=== PATIENT | male | born 1955 | race Caucasian/White ===

== ENCOUNTER → 2016-12-18 | Outpatient (CLI) | payer OTHER ==
--- NOTE | 2016-12-19 07:21 | PAP/PSG TECHNICIAN REPORT ---
[facility] Supervisor Edging Polysomnogram Report Study name: None Report date: 12/19/2016 Study date: 12/18/2016 Referring Physician: Agus Lee M.D. Name: PREM LAURA Maria D Interpreting Physician: Angie Lee M.D. Date of : 1955 Supervisor Edging: Gia Cronin, PSGT. Sex: Male Age: 61 StudyType: PSG Weight: 332 lbs Height: 61 years, Height 5' 9" Neck Circum: 21 inches BMI: 49.02 Medications: Maxide 37.5-25 , Metformin 850 mg, Lipitor 20 mg, Flonase 50 mcg, Williamson-3 1000 mg, Aspirin EC 81 mg, Muti-vit, Epipen 0.3 mg. Patient History 61 yr. old male in room 7, presents tonight for a split night study. states that he is going through the process of gastric bypass surgery. Pt. states that he has awakened gasping and that he snores. Ess =13, Neck = 21 inches. Parameters Monitored NPSG: E1-M2, E2-M1, Fp1-M2, Fp2-M1, F3-M2, F4-M2, F4-M1, C3-M2, C4-M2, C4-M1, O1-M2, O2-M2, O2-M1, T3-M2, T4-M1, P3-M2, P4-M1, CHIN1, CHIN2, HR, EKG, Legs, PFLOW, SNOR, FLOW, CFLOW, Tidal Volume, THOR, ABDO, SpO2, PLTH, CPRESS, ETCO2 Wave, ETCO2, pH Sleep Architecture Sleep Stages Time at Lights Off 9:04:14 PM STAGES Time (min.) TST (%) Time at Lights On 4:16:44 AM Wake 168.5 -- Total Recording Time (TRT) 434.00 min. N1 32.5 12 Total Sleep Period (TSP) 408.5 min. N2 173.5 66 Total Sleep Time (TST) 264.0min. N3 0.0 0 Awake Time 170.0 min. REM 58.0 22 Wake after Sleep Onset 163.0 min. Sleep Efficiency (SE) 61 % Sleep Onset Latency (AUBREY) 5.5 min. Number of Stage 1 Shifts None Awakenings 12 Stage Changes 50 Number of REM periods 2 REM 58.0 22 REM Latency 93.5 min. NREM 206.0 78 Body Position Analysis Supine Right Left Side Prone Vertical Total Sleep Time (min.) 432.5 0.0 0.0 0.00 0.0 0.0 Total Sleep Time (%) 100% 0% 0% 0 0% N/A% Total Sleep Time REM (min.) 58.0 0.0 0.0 None 0.0 0.0 Total Sleep Time NREM (min.) 206.0 0.0 0.0 None 0.0 0.0 Intermittent Wake (min.) 168.5 0.0 0.0 None 0.0 0.0 Total Sleep Period (%) 100% None None None None None Arousals Myoclonus (PLM) * Events Count Index Events Count Index Spontaneous 68 15 Events Awake (PLMW) 5 1.8 Respiratory 4 0.9 Events Asleep w/ Arousal (PLMA) 0 0.0 PLM 0 0 Events Asleep w/o Arousal (PLMS) 16 3.6 Snoring 11 3 Total Asleep 16 3.6 Total 83 19 Total 21 3 Respiratory Analysis * CA OA MA CH H RERA Total Count 0 2 0 0 63 0 66 Index 0.0 0.5 0.0 0 14.3 0 15.0 Mean Duration 0.0 20.7 0.0 35.27 21.2 0.0 21.4 Longest Duration 0.0 23.7 0.0 35.27 0.0 0.0 45.9 Respiratory Event Summary Total Supine ~Supine Right Left Prone REM NREM Apneas Count 2 2 N/A N/A N/A N/A 1 1 Index 0.5 0 N/A N/A N/A N/A 1 0 Hypopneas (4% Desat) Count 63 63 N/A N/A N/A N/A 37 26 Index 14.3 14.3 N/A N/A N/A N/A 38.3 7.6 Apneas & All Hypopneas Count 66 66 N/A N/A N/A N/A 39 27 Index 15.0 15 N/A N/A N/A N/A 40.3 7.9 Respiratory Events (Etl Programmer+All Hyp+RERA) Count 66 66 N/A N/A N/A N/A 39 27 Index 15.0 15 N/A N/A N/A N/A 40.3 7.9 Respiratory Related Arousal Count 4 66 N/A N/A N/A N/A 1 3 Index 0.9 1 N/A N/A N/A N/A 1 1 Snoring Analysis Supine Right Left Prone REM NREM Total Snore duration 9.1 min Snores count 503 N/A N/A N/A 38 465 503 Snore mean duration 1.1 Sec Snores index 114 N/A N/A N/A 39.3 135.4 114.3 TST with snoring (%) 3.4% SpO2 Analysis Total REM NREM Awake <50% 0.0 min. 0.0 min. 0.0 min. 0.0 min. 51 - 60% 0.0 min. 0.0 min. 0.0 min. 0.0 min. 61 - 70% 0.2 min. 0.2 min. 0.0 min. 0.0 min. 71 - 80% 7.5 min. 7.5 min. 0.0 min. 0.0 min. 81 - 90% 231.0 min. 42.8 min. 134.8 min. 53.5 min. 91 - 100% 172.3 min. 7.5 min. 71.2 min. 93.6 min. Average 90 85 90 91 Minimum SpO2 69 69 83 85 Desaturation Event Index 9.0 39.3 7.9 0.0 # Desat. Events below 89% 61 36 25 0 Time(%) with Saturation below 89% 16.6 10.2 5.1 1.3 Time(min.) with Saturation below 89% 68.2 42.0 21.0 5.2 Heart Rate Analysis End Tidal CO2 Analysis Min (bpm) Max (bpm) Average (bpm) TSP (mins) % of TSP Awake 58 119 84 Above 55 mmHg 6.1 2.3 NREM 57 104 78 50-55 mmHg 58.2 22.0 REM 49 94 69 45-50 mmHg 196.5 74.4 Overall 49 104 76 40-45 mmHg 2.4 0.9 35-40 mmHg 0.6 0.2 30-35 mmHg 0.0 0.0 Average ETCO2 0.0 Supplemental O2 Values Minimum O2 level: None Value Start Time End Time Supervisor Edging Comments PSG Study Mr. Christensen slept in the supine position. No cardiac arrhythmia or PLM's noted. No bruxism noted. Snoring was noted and scored as a 3 on a scale of 1 through 5. (0=no snoring, 5=snoring loud enough to be heard through a closed door or down the dean way) Mr. Christensen awoke to use the restroom 2 times during the night. Mr. Christensen stated, I did better than I sleep in my own bed. The final report will be interpreted and signed by a sleep physician. The completed physician report will then be placed in the patient medical record. Pt. slept in the hospital bed with it reclined up 40 %, he did have a lot of hip, knees and foot pain throughout the night. Pt. did not meet split night criteria in a timely matter. Moderate snoring was displayed while sleeping, patient did wake often from hip discomfort and to use the restroom. woke at 4 am and stated that he was unable to sleep any longer, test ended at that time. Therapy (cm H2O) 0 TIB (min.) 432.5 TST (min.) 264.0 Sleep Onset (min.) 5.5 REM Onset From Sleep (min.) 93.5 Sleep Efficiency % 61 Wakefulness (%) 39 Wakefulness (min.) 170.0 NREM 1 (%) 12 NREM 1 (min.) 32.5 NREM 2 (%) 66 NREM 2 (min.) 173.5 NREM 3 (%) 0 NREM 3 (min.) 0.0 REM (%) 22 REM (min.) 58.0 # Arousals 83 Arousal Index 19 # Snore 503 Snore Index 114.3 AHI 15.0 AHI Supine 15 AHI Non-Supine N/A NREM AHI 7.9 REM AHI 40.3 RDI 15.0 # Obstructive Apnea 2 # Central Apnea 0 # Mixed Apnea 0 # Hypopneas 63 RERAs 0 Total Respiratory Events 66 Time Below SpO2 89% (min.) 63.0 Mean NREM SpO2 (%) 90 Mean REM SpO2 (%) 85 Mean Sleep SpO2 (%) 89 Min NREM SpO2 (%) 83 Min REM SpO2 (%) 69 Position Supine (min.) 432.5 Position Non-supine (min.) 0.0 LM Index Sleep 3.6 LM Index NREM 3.5 LM Index REM 4.1 Mean Heart Rate (bpm) 76 Min Heart Rate (bpm) 49
--- NOTE | 2016-12-28 09:00 | POLYSOMNOGRAPH REPORT ---
REFERRING PERSON: Dr. Noemi Lee. PATCH PRESS OPERATOR: Leah Cronin. Mr. Christensen is a 61-year-old male, who presents to the sleep lab for a split night sleep study. He is anticipating gastric bypass surgery. He wakes up from sleep gasping for air and he snores. His [place] sleepiness scale score on the evening of this study is 13. BMI is 49.02. Following the technical and digital specifications of the [employer] (AASM) a standard diagnostic polysomnogram was performed monitoring EEG, EOG, EMG (chin and leg deviations), oxygen saturation, body position, digital video, respiratory effort and airflow. The sleep Stage and event scoring was based on the AASM Manual for the Scoring of Sleep and Associated Events 2007 edition. Apneas are defined as a drop in the peak thermal sensor excursion by >90% of baseline for at least 10 seconds. Hypopneas were scored using the 4% oxygen desaturation rule (4A-[employer]ic[employer]) and a decrease in the nasal pressure excursions by >30% of baseline for at least 10 seconds. Respiratory effort-related arousal (RERA's) is defined as a sequence of breaths lasting at least 10 seconds characterized by increasing respiratory effort or flattening of the nasal pressure waveform leading to an arousal from sleep when the sequence of breaths does not meet criteria for an apnea or hypopnea. Apnea Hypopnea index (AHI) is defined as the number of apneas and hypopneas occurring in an hour of sleep. Respiratory disturbance index (RDI) is defined as the number of apneas, hypopneas, and RERA's occurring in an hour of sleep. Mr. Christensen's total sleep period time was 408.5 minutes. Total sleep time was 264 minutes. Sleep efficiency was 61%. Latency to sleep onset was 5.5 minutes with wake after sleep onset of 163 minutes. Total non-REM sleep time was 206 minutes. He spent 12% of that time in N1 sleep. He spent 56% in N2 sleep, and no time in N3 sleep. REM latency was normal at 93.5 minutes. Total REM sleep time was 58 minutes or 22% of total sleep time. There were 83 cortical arousals from sleep. 58 of these arousals were spontaneous, 4 were due to respiratory events, and 11 due to snoring. There were 16 periodic limb movements noted on this test. Limb movement index was 3.6 with an arousal index of 0. There were 2 obstructive apneas, no central or mixed apnea on this test. However, there were 63 hypopnea. Apnea-hypopnea index was 15. The entire duration of this study was done in supine sleep. REM AHI was 40.3. 503 snoring events were recorded. Total sleep time with snoring was 3.4%. Mean saturation was borderline low at 90%. Desaturations to 69% were noted on this study. Saturations were less than 89% for 68.2 minutes of recorded time. There was no cardiac ectopy noted on this study. Heart rates ranged from a low of 49 beats per minute to a high of 104 beats per minute. End-tidal CO2 was recorded on this test. End tidal CO2s were above 55 mmHg, 2.3% of total sleep period time, between 50 and 55 mmHg for 22% of total sleep period time, between 45 and 50 mmHg for 74.4%, and between 40 and 45 mmHg for 0.9% of total sleep period time. These are elevated end-tidal CO2 values that suggest an element of obesity hypoventilation. IMPRESSION AND PLAN: A 61-year-old male with evidence of mild to moderate sleep apnea and significant nocturnal hypoxemia on this study. There is also end-tidal CO2 data suggestive of obesity hypoventilation. 1. This patient would likely benefit from positive airway pressure therapy. This would likely address all problems. This includes his snoring as well. He should return to the sleep lab for a full night titration and then based on those results be started on an equipment at home. A download from his machine can be reviewed in 1 month both to check compliance as well as AHI and further pressure adjustments can occur at that time.
== END | disposition home or self-care (01) ==
LOC: C.NEUR 20:00
PROVIDERS: ATTEND Family Medicine
DX: R06.83 Snoring (principal); G47.10 Hypersomnia, unspecified; E66.01 Morbid (severe) obesity due to excess calories; G47.00 Insomnia, unspecified

== ENCOUNTER 2018-02-11 22:56 | Inpatient (IN) | payer OTHER ==
[~2018-02-11] VITALS: Ht 172.7 cm; Wt 109.8 kg
--- NOTE | 2018-02-11 23:20 | EMERGENCY ROOM VISIT NOTE ---
History Report prepared by [place]: Joao Pyle Under the Supervision of: Dr. Jaclyn Moralez D.O. First contact with patient: 23:05 Chief Complaint: RECTAL BLEEDING Stated Complaint: GI BLEED History of Present Illness The patient is a 62 year old male who presents to the Emergency Room with complaints of an episode of rectal bleeding occurring tonight. The patient states that he has a history of a gastric bypass and has been producing bloody stool tonight. He notes that he has not been feeling bad for the last few days but he reports that he has been feeling more tired. The patient states that his stool has previously been a whitish-holden color. He notes that his stool has also been having a worse odor than usual and he reports that he has been producing more gas. Per family, the patient looks more pale than he typically does. The patient denies any nausea, vomiting, and diarrhea. He states that he had a similar episode many years ago and notes that he had a stomach ulcer at that time. He reports that he had a colonoscopy done a few months ago but did not have an endoscopy done at that time. The patient states that he does not have any heart problems and does not have a history of diabetes. Source of History: patient, family Onset: tonight Position: abdomen Quality: other (rectal bleeding) Timing: other (an episode) Associated Symptoms: No nausea, No vomiting, No diarrhea Note: The patient also complains of feeling tired and having bloody stool. He notes that his stool has also been having a worse odor than he reports that he has been producing more gas. Per Review of Systems See HPI for pertinent positives & negatives. A total of 10 systems reviewed and were otherwise negative. Past Medical & Surgical Medical Problems: (1) GI bleed Surgical Problems: (1) H/O colonoscopy (2) H/O gastric bypass Family History No pertinent family history stated. Social History Smoking Status: Former Smoker Marital Status: Occupation Status: disabled Current/Historical Medications Scheduled Aspirin (Aspirin Ec), 81 MG PO DAILY Atorvastatin (Lipitor), 20 MG PO DAILY Calcium Carbonate-Vitamin D (Calcium 600 + D), 1 TAB PO DAILY Cyanocobalamin (Cyanocobalamin), 1 ML INJ q 3 months Pediatric Multiple Vitamin W/ (Flintstones Gummies Compl), 2 TABS PO DAILY Scheduled PRN Tramadol (Ultram), 50 MG PO Q8H PRN for Pain Allergies Coded Allergies: Naproxen (Verified Allergy, Intermediate, RASH, 08/24/09) Uncoded Allergies: NONSTEROIDAL (Adverse Reaction, Intermediate, NO NSAID'S PER DR MERCADO- GI BLEED, 08/24/09) Physical Exam Vital Signs Date Time Temp Pulse Resp B/P (MAP) Pulse Ox O2 Delivery O2 Flow Rate FiO2 02/12/18 01:30 63 15 110/73 99 02/12/18 01:00 58 17 100/63 99 02/12/18 00:30 62 20 91/68 100 02/12/18 00:00 64 17 100/62 98 02/11/18 23:30 62 13 89/58 100 02/11/18 23:24 91/57 02/11/18 23:08 71 02/11/18 23:06 93/55 02/11/18 22:58 36.9 95 20 89/59 99 Room Air Physical Exam HEENT: Head - normocephalic and atraumatic Pupils are equal, round, and reactive to light. Extraocular eye muscles are intact, and sclera are anicteric. Nose - moist nasal mucosa without discharge. Mouth - moist buccal mucosa. Oropharynx is nonerythematous and there is no tonsillar exudate or edema noted. Neck: Supple; no JVD, nuchal rigidity, cervical lymphadenopathy. Heart: Regular rate and rhythm. There is a normal S1 and S2 with no murmurs, clicks, or gallops appreciated. Lungs: Clear to auscultation bilaterally with no wheezes, rales, or rhonchi. Abdomen: Soft, completely nontender, nondistended, with good bowel sounds. There are no palpable pulsatile masses or hepatosplenomegaly. There is no guarding, rigidity, or rebound noted. Extremities: No evidence of cyanosis and clubbing. There are easily palpable peripheral pulses. Trace pedal edema. Skin: warm and good turgor and no rashes. Pale and diaphoretic. Medical Decision & Procedures Laboratory Results Test 02/11/18 23:13 Total Bilirubin 0.4 mg/dl (0.2-1) Aspartate Amino Transf (AST/SGOT) 16 U/L (15-37) Alanine Aminotransferase (ALT/SGPT) 21 U/L (12-78) Alkaline Phosphatase 88 U/L (45-117) Troponin I < 0.015 ng/ml (0-0.045) Total Protein 7.2 gm/dl (6.4-8.2) Albumin 3.5 gm/dl (3.4-5.0) Globulin 3.7 gm/dl (2.5-4.0) Albumin/Globulin Ratio 0.9 (0.9-2) Laboratory results per my review. Medications Administered Medications (Trade) Dose Ordered Sig/Debbie Route Start Time Stop Time Status Last Admin Dose Admin Sodium Chloride 1,000 ml @ 250 mls/hr Q4H STAT IV 02/11/18 23:30 02/12/18 02:54 DC 02/11/18 23:48 250 MLS/HR Sodium Chloride 1,000 ml @ 999 mls/hr Q1H1M STAT IV 02/11/18 23:30 02/12/18 00:30 DC 02/11/18 23:35 999 MLS/HR Sodium Chloride 1,000 ml @ 999 mls/hr Q1H1M STAT IV 02/12/18 00:13 02/12/18 01:13 DC 02/12/18 00:30 999 MLS/HR Pantoprazole Sodium (Protonix IV Bolus/Drip) 1 ea NOW STAT IV 02/12/18 00:23 02/12/18 00:24 DC 02/12/18 01:00 1 EA Pantoprazole Sodium 80 mg/ Dextrose 120 ml @ 480 mls/hr NOW STAT IV 02/12/18 00:35 02/12/18 00:49 DC 02/12/18 01:00 480 MLS/HR Pantoprazole Sodium 40 mg/ Dextrose 100 ml @ 20 mls/hr Q5H IV 02/12/18 00:45 02/12/18 05:44 DC 02/12/18 01:20 20 MLS/HR Procedure Sodium Chloride 1000 ml @ 999 mls/hr IV. Protonix IV Bolus/Drip 1 ea IV. ECG Per My Interpretation Indication: other (hypotension) Rate (beats per minute): 57 Rhythm: sinus bradycardia Findings: no ectopy, other (No ischemia, no ST) ED Course 2309: The patient was evaluated in room B12. A complete history and physical examination were performed. Nursing notes and previous electronic medical records were reviewed. IV lock was established and labs were drawn as above. The patient was typed and screened for packed red blood cells 2330: Sodium Chloride 1000 ml @ 999 mls/hr IV. 0015: I reevaluated and updated the patient. He is still hypotensive after 1L of saline so he will get another liter. 0016: Upon reevaluation, I discussed findings and results with the patient. He verbalized agreement of the treatment plan. I spoke with Dr. Díaz of the [facility]. The patient will be evaluated for further management and care. 0022: I rechecked the patient. His blood pressure was 100/62 after 1L of saline. The patient states that he is feeling much better. He will receive IV Protonix. 0023: Protonix IV Bolus/Drip 1 ea IV Medical Decision The patient is a 62 year old male who presents to the Emergency Room with complaints of an episode of rectal bleeding occurring tonight. Differential diagnoses include: upper GI bleed, ulcerative disease, gastritis, and anemia. Lab Results Show: White count 12.9. Hemoglobin 11.4. Normal platelet count. BUN 32. Normal creatinine. Normal LFTs. Glucose 139. Negative troponin. This is a 62-year-old male patient presents to the emergency department after an episode of melena tonight. His family noticed that he was pale. He had a previous episode of melanoma many years ago and was diagnosed with a gastric/ duodenal ulcer. Since that time, the patient underwent gastric bypass. He is followed by gastroenterology. Patient is having intermittent episodes of hypotension. His H&H are stable at this time. He was typed and screened for packed red blood cells. He was given IV Protonix. Medication Reconcilliation Current Medication List: was personally reviewed by me Blood Pressure Screening Patient's blood pressure: Low blood pressure Low blood pressure will be monitored by hospitalist. Consults Time Called: 11 Consulting Phys[facility] Returned Call: 15 Discussed the patient's case. The patient will be evaluated for further management. Impression Primary Impression: Upper GI bleed Additional Impression: Hypotension Scribe Attestation The scribe's documentation has been prepared under my direction and personally reviewed by me in its entirety. I confirm that the note above accurately reflects all work, treatment, procedures, and medical decision making performed by me. Departure Information Dispostion Being Evaluated By Hospitalist Prescriptions Atorvastatin (LIPITOR) 20 Mg Tab 20 MG PO DAILY, #30 TAB Prov: Hayden Díaz MD 02/12/18 Referrals Gianna Olmos M.D. (PCP) Patient Instructions My [facility] Problem Qualifiers Additional Impression: Hypotension Hypotension type: unspecified hypotension type Qualified Codes: I95.9 - Hypotension, unspecified
[2018-02-11 23:22] LABS: BASO % 0.4 %; BASO ABS # 0.05 K/uL (0-0.2); EOS % 1.8 %; EOS ABS # 0.23 K/uL (0-0.5); HEMATOCRIT 34.8 % (42-52); HEMOGLOBIN 11.4 g/dL (14.0-18.0); IG# 0.06 K/uL (0.00-0.02); LYMPH % 27.7 %; LYMPH ABS # 3.58 K/uL (1.2-3.4); MEAN CELL VOLUME 86.6 fL (80-100); MEAN CORPUSCULAR HEMOGLOBIN 28.4 pg (25-34); MEAN CORPUSCULAR HGB CONC 32.8 g/dl (32-36); MEAN PLATELET VOLUME 10.4 fL (7.4-10.4); MONO % 5.9 %; MONO ABS # 0.76 K/uL (0.11-0.59); NEUT % 63.7 %; NEUT ABS # 8.24 K/uL (1.4-6.5); PLATELET COUNT 390 K/uL (130-400); RED CELL DISTRIBUTION WIDTH CV 14.5 % (11.5-14.5); RED CELL DISTRIBUTION WIDTH SD 45.7 fL (36.4-46.3); WHITE BLOOD COUNT 12.92 K/uL (4.8-10.8)
[2018-02-11] MEDS ORDERED: SODIUM CHLORIDE 0.9% 1000ML 1,000 ML IV STA ×2 (23:30)
[2018-02-11 23:44] LABS: ALBUMIN 3.5 gm/dl (3.4-5.0); ALKALINE PHOSPHATASE 88 U/L (45-117); ALT/SGPT 21 U/L (12-78); AST/SGOT 16 U/L (15-37); BLOOD UREA NITROGEN 32 mg/dl (7-18); CALCIUM 8.6 mg/dl (8.5-10.1); CARBON DIOXIDE 24 mmol/L (21-32); CREATININE 1.17 mg/dl (0.60-1.40); GLUCOSE 139 mg/dl (70-99); POTASSIUM 4.1 mmol/L (3.5-5.1); SODIUM 141 mmol/L (136-145); TOTAL PROTEIN 7.2 gm/dl (6.4-8.2)
[2018-02-12] VITALS (9 sets, daily range): BP systolic 111–138; BP diastolic 63–80; PULSE 51–71; TEMP 36.6–36.8; O2SAT 92–100; Ht 172.7 cm; Wt 109.8 kg
[2018-02-12] MEDS ORDERED: SODIUM CHLORIDE 0.9% 1000ML 1,000 ML IV STA (00:13)
[2018-02-12] MEDS ORDERED: PANTOprazole INJ 80 MG in DEXTROSE 5% 100ML IV STA (00:35)
[2018-02-12] MEDS ORDERED: PANTOprazole INJ 40 MG in DEXTROSE 5% 100ML IV SCH (00:45)
[2018-02-12] MEDS ORDERED: ASPI81TA28 PO (00:56)
[2018-02-12] MEDS ORDERED: PEDI1CHW82 PO (00:56)
[2018-02-12] MEDS ORDERED: CALC-20 PO (00:56)
[2018-02-12] MEDS ORDERED: CYNI1000 INJ (00:56)
[2018-02-12] MEDS ORDERED: ATOR10TA82 PO (00:56)
[2018-02-12] MEDS ORDERED: TRAM-10 PO (00:56)
[2018-02-12] MEDS ORDERED: ACETAMINOPHEN 325 MG TAB PO PRN (01:45)
[2018-02-12] MEDS ORDERED: ONDANSETRON INJ 2 MG/ML 2 ML VIAL IV PRN (01:45)
[2018-02-12] MEDS ORDERED: ALUMINUM/MAGNESIUM/SIMETH (MAALOX MAX) 30 ML UDC PO PRN (01:45)
[2018-02-12] MEDS ORDERED: TRAMADOL HCL 50 MG TAB PO PRN (01:45)
[2018-02-12] MEDS ORDERED: NITROGLYCERIN 0.4 MG SL PER TAB CHARGE SL PRN (01:45)
[2018-02-12] MEDS ORDERED: ATOR-22 PO (01:53)
[2018-02-12] MEDS: SODIUM CHLORIDE 0.9% 1000ML 1,000 ML IV SCH ×2 (02:57→15:16)
[2018-02-12 05:07] LABS: BASO % 0.2 %; BASO ABS # 0.02 K/uL (0-0.2); EOS % 1.5 %; EOS ABS # 0.17 K/uL (0-0.5); HEMATOCRIT 26.9 % (42-52); HEMOGLOBIN 8.7 g/dL (14.0-18.0); IG# 0.03 K/uL (0.00-0.02); LYMPH % 32.4 %; LYMPH ABS # 3.73 K/uL (1.2-3.4); MEAN CELL VOLUME 85.9 fL (80-100); MEAN CORPUSCULAR HEMOGLOBIN 27.8 pg (25-34); MEAN CORPUSCULAR HGB CONC 32.3 g/dl (32-36); MEAN PLATELET VOLUME 9.9 fL (7.4-10.4); MONO % 6.3 %; MONO ABS # 0.73 K/uL (0.11-0.59); NEUT % 59.3 %; NEUT ABS # 6.85 K/uL (1.4-6.5); PLATELET COUNT 278 K/uL (130-400); RED CELL DISTRIBUTION WIDTH CV 14.6 % (11.5-14.5); RED CELL DISTRIBUTION WIDTH SD 45.9 fL (36.4-46.3); WHITE BLOOD COUNT 11.53 K/uL (4.8-10.8)
[2018-02-12 05:32] LABS: CALCIUM 7.6 mg/dl (8.5-10.1); CREATININE 0.82 mg/dl (0.60-1.40); POTASSIUM 4.2 mmol/L (3.5-5.1)
[2018-02-12] MEDS: PANTOprazole INJ 40 MG in DEXTROSE 5% 100ML IV SCH ×2 (05:58→10:38)
--- NOTE | 2018-02-12 07:51 | HISTORY & PHYSICAL EXAMINATION ---
DATE OF ADMISSION: 02/11/2018 CHIEF COMPLAINT: GI bleed. HISTORY OF PRESENT ILLNESS: This is a 62-year-old male with past medical history significant for obesity, hyperlipidemia, diabetes, hypertension, sleep apnea, but not taking any of his diabetes, or blood pressure medications since he had gastric bypass surgery in 05/2017, and lost about 70 pounds, history of gastric ulcer long time back, who presents today with episode of bright red blood per rectum, which lasted for up to 15 minutes, which brought him to the ER. Currently, resting comfortably. Currently, no more episodes since then. Denies any abdominal pain, no nausea, no vomiting. Hemodynamically stable. No chest pain, no shortness of breath, no cough, no fever, no chills, no headaches, no blurred vision, no dizziness, no earache, no runny nose, no sore throat. No skin rash, no edema in the legs, resting comfortably and hemodynamically stable. ALLERGIES: CHOCOLATE and JANUVIA. PAST MEDICAL HISTORY: As mentioned above. PAST SURGICAL HISTORY: Gastric bypass surgery, colonoscopy, EGDs, laparoscopic procedure of the liver, tonsillectomy, adenoidectomy, knee surgery, and vasectomy. MEDICATIONS: Currently, the patient is on tramadol 50 mg p.o. q. 6 hours p.r.n. pain, multivitamins, cyanocobalamin injections 2 to 3 months, calcium plus vitamin D 1 tablet p.o. daily, Lipitor 20 mg p.o. daily. FAMILY HISTORY: Significant for father had brain cancer and hypertension. Mother had thyroid disorder, diabetes, and eye problems. SOCIAL HISTORY: Quit smoking in 2007, prior to this smoked one pack a day for 6 years. No alcohol use, no drug use. REVIEW OF SYMPTOMS: As per HPI. Rest of review of systems negative. PHYSICAL EXAMINATION: GENERAL: The patient is obese, not in distress. VITAL SIGNS: Temperature 36.9, pulse 58, respiratory rate 17, blood pressure 100/63, oxygen 99% room air. HEENT: No pallor, no icterus. Pupils equal, round, and reactive to light. NECK: No JVD. No neck masses. No carotid bruit. CARDIOVASCULAR: S1, S2 heard, regular rate and rhythm, no murmur, no gallop. RESPIRATORY SYSTEM: Clear to auscultation bilaterally. No wheezing, no crackles. ABDOMEN: Soft, bowel sounds present. Nontender. No distention. CENTRAL NERVOUS SYSTEM: Cranial nerves II-XII grossly intact. Nonfocal. EXTREMITIES: No edema, no erythema. LABS: WBC 12.9, hemoglobin 11.4, hematocrit 34.8, platelets 390. Sodium 141, potassium 4.1, chloride 107, bicarbonate 27, BUN 32, creatinine 1.1, serum glucose 139, calcium 8.6, total bilirubin 0.4, AST 16, ALT 21, alkaline phosphatase 80, troponin I less than 0.015. EKG: Normal sinus bradycardia at the rate of 57, no acute ST changes seen. ASSESSMENT AND PLAN: This is a 62-year-old male who presents with GI bleed. 1. GI bleed, bright red blood per rectum, had a gastric bypass surgery in 05/2017, history of gastric ulcers in the past, started on Protonix drip. Hemoglobin stable,. We will check H and H and transfuse as needed. possible EGD. The patient recently had colonoscopy around 09/2017, which showed diverticulosis. Possible current bleed could be from the diverticular bleed. Await GI recommendations. 2. Morbid obesity, status post gastric bypass surgery in 05/2017, lost 70 pounds. Follow with the PCP for nutrition supplements. 3. History of diabetes, Not taking any medication since gastric bypass. We will check the HbA1c level. 4. History of hypertension, not on any medication anymore.Will Monitor 5. DVT prophylaxis, SCDs for now. 6. Disposition: Admit to tele floor. Expect to discharge home and follow with his family doctor. Level 1 full code. MTDD
--- NOTE | 2018-02-12 09:34 | Gastrointestinal Consultation ---
Gastrointestinal Consultation Date of Consultation: Feb 12, 2018 Attending Physician: Debi Brian Consulting Physician: Yomi Hammonds Reason for Consultation: Rectal bleeding History of Present Illness Patient is a 62 year old male who presented to ED last night w rectal bleeding. Hx of gastric bypass in 2017, lost 70lbs. Hx of duodenal ulcer in 2003 due to Ibuprofen use. He has been avoiding NSAIDs and tobacco, ETOH. He is on ASA 81mg daily. He had several episodes of rectal bleeding, bright red per his report prior to coming in, then none overnight but 2 more episodes this AM. RN notes bleed was mostly maroon, not tarry or black, and + clots. He denies any abd pain , n/v, fever, chills. Hgb dropped from 11->8 overnight. BUN is up at admission and this AM at 32. He did have low BP at 80s/50s at admission. He had been given IVF resuscitation, and PPI bolus, gtt. EGD 2003: duodenal ulcer Colonoscopies 2011, 2012, 2018: hx of benign polyps, diverticulosis. Past Medical/Surgical History Medical Problems: (1) Hypotension Status: Acute (2) Upper GI bleed Status: Acute Past Medical History: See above, HTN, DM II, HLD, ELI, Past Surgical History: As above, tonsillectomy, adenoidectomy, knee surgery, vasectomy Social History Smoking Status: Never Smoker Alcohol Use: none Drug Use: none Marital Status: Occupation Status: disabled Allergies Coded Allergies: Chocolate (Verified Allergy, Intermediate, ., 02/12/18) Naproxen (Verified Allergy, Intermediate, RASH, 08/24/09) Uncoded Allergies: NONSTEROIDAL (Adverse Reaction, Intermediate, NO NSAID'S PER DR MERCADO- GI BLEED, 08/24/09) Current Medications Home Meds and Scripts Medications Dose Route/Sig Max Daily Dose Days Date Category Lipitor (Atorvastatin Calcium) 20 Mg Tab 20 Mg PO DAILY 02/12/18 Rx Cyanocobalamin 1,000 Mcg/Ml Inj 1 Ml INJ Q 3 MONTHS 02/12/18 Reported Ultram (Tramadol HCl) 50 Mg Tab 50 Mg PO Q8H PRN 02/12/18 Reported Calcium 600 + D (Calcium Carbonate-Vitamin D) 1 Tab Tab 1 Tab PO DAILY 02/12/18 Reported Flintstones Gummies Compl (Pediatric Multiple Vitamin W/) 1 Chw Chw 2 Tabs PO DAILY 02/12/18 Reported Aspirin Ec (Aspirin) 81 Mg Tab 81 Mg PO DAILY 02/12/18 Reported Review of Systems Constitutional: + weakness, No fever, No chills Respiratory: No cough, No shortness of breath Cardiac: No chest pain Abdomen: + see HPI, + GI bleeding, No pain, No nausea, No vomiting Endo: + fatigue Physical Exam Date Time Temp Pulse Resp B/P (MAP) Pulse Ox O2 Delivery O2 Flow Rate FiO2 02/12/18 04:00 96 Room Air 02/12/18 04:00 36.8 51 16 118/63 (81) 96 Room Air 02/12/18 02:51 36.6 58 58 117/63 98 Room Air 02/12/18 02:00 60 14 95/63 97 02/12/18 01:30 63 15 110/73 99 02/12/18 01:00 58 17 100/63 99 02/12/18 00:30 62 20 91/68 100 02/12/18 00:00 64 17 100/62 98 02/11/18 23:30 62 13 89/58 100 02/11/18 23:24 91/57 02/11/18 23:08 71 02/11/18 23:06 93/55 02/11/18 22:58 36.9 95 20 89/59 99 Room Air General Appearance: WD/WN, no apparent distress Eyes: normal inspection, PERRL, EOMI Neck: supple, no JVD, trachea midline Respiratory/Chest: normal breath sounds, no respiratory distress, no accessory muscle use Cardiovascular: regular rate, rhythm, no gallop, no JVD Abdomen: non tender, soft, + abnormal bowel sounds (hypoactive) Extremities: normal inspection, no pedal edema, no calf tenderness Neurologic/Psych: alert, normal mood/affect, oriented x 3 Skin: normal color, no jaundice, no rash Laboratory Results Last 24 Hours Test 02/11/18 23:13 02/12/18 04:58 White Blood Count 12.92 K/uL 11.53 K/uL Red Blood Count 4.02 M/uL 3.13 M/uL Hemoglobin 11.4 g/dL 8.7 g/dL Hematocrit 34.8 % 26.9 % Mean Corpuscular Volume 86.6 fL 85.9 fL Mean Corpuscular Hemoglobin 28.4 pg 27.8 pg Mean Corpuscular Hemoglobin Concent 32.8 g/dl 32.3 g/dl Platelet Count 390 K/uL 278 K/uL Mean Platelet Volume 10.4 fL 9.9 fL Neutrophils (%) (Auto) 63.7 % 59.3 % Lymphocytes (%) (Auto) 27.7 % 32.4 % Monocytes (%) (Auto) 5.9 % 6.3 % Eosinophils (%) (Auto) 1.8 % 1.5 % Basophils (%) (Auto) 0.4 % 0.2 % Neutrophils # (Auto) 8.24 K/uL 6.85 K/uL Lymphocytes # (Auto) 3.58 K/uL 3.73 K/uL Monocytes # (Auto) 0.76 K/uL 0.73 K/uL Eosinophils # (Auto) 0.23 K/uL 0.17 K/uL Basophils # (Auto) 0.05 K/uL 0.02 K/uL RDW Standard Deviation 45.7 fL 45.9 fL RDW Coefficient of Variation 14.5 % 14.6 % Immature Granulocyte % (Auto) 0.5 % 0.3 % Immature Granulocyte # (Auto) 0.06 K/uL 0.03 K/uL Sodium Level 141 mmol/L 142 mmol/L Potassium Level 4.1 mmol/L 4.2 mmol/L Chloride Level 107 mmol/L 112 mmol/L Carbon Dioxide Level 24 mmol/L 24 mmol/L Anion Gap 9.0 mmol/L 6.0 mmol/L Blood Urea Nitrogen 32 mg/dl 32 mg/dl Creatinine 1.17 mg/dl 0.82 mg/dl Est Creatinine Clear Calc Drug Dose 79.6 ml/min 115.1 ml/min Estimated GFR () 78.1 111.4 Estimated GFR (Non- 67.4 96.1 BUN/Creatinine Ratio 27.7 39.2 Random Glucose 139 mg/dl 103 mg/dl Calcium Level 8.6 mg/dl 7.6 mg/dl Total Bilirubin 0.4 mg/dl Aspartate Amino Transf (AST/SGOT) 16 U/L Alanine Aminotransferase (ALT/SGPT) 21 U/L Alkaline Phosphatase 88 U/L Troponin I < 0.015 ng/ml Total Protein 7.2 gm/dl Albumin 3.5 gm/dl Globulin 3.7 gm/dl Albumin/Globulin Ratio 0.9 Red Blood Cell Morphology Unremarkable Impression Patient is a 62 year old male w painless rectal bleeding. Hx of duodenal ulcer in 2004 from Ibuprofen use, gastric bypass in 2017. Colonoscopies w findings of diverticuli, benign polyps. DDx: PUD w bleeding, diverticular bleeding, hemorrhoidal bleed, AVMs. Plan - Keep NPO for EGD eval today - PPI gtt - Monitor H/H and transfuse prn - GI will further recs after EGD is completed. ATTESTATION: I have performed a history and physical examination of this patient and reviewed the electronic record. Specifically on physical examination there is no abdominal tenderness. I have discussed the case with BHARAT James. The above note reflects my findings, conclusions, and recommendations. Yomi Hammonds MD
[2018-02-12] MEDS ORDERED: OPTIRAY 320 IV PRN (10:15)
--- NOTE | 2018-02-12 10:26 | Progress Note ---
Internal Med Progress Note Date of Service: Feb 12, 2018. Provider Documentation: SUBJECTIVE: Does not feel well Had 2 episode of dark/melanotic bowel movement this morning felt dizzy and lightheaded No nausea vomiting or/ abdominal pain No complaint of chest heaviness, shortness of breath, dyspnea on exertion Remains n.p.o., with IV Protonix drip Evaluated by GI team this morning Scheduled for EGD today OBJECTIVE: Vital Signs-as noted below Exam: General- very pale, appears to be tired and fatigued, Eyes-sclera nonicteric, pupils bilateral equal reactive to light extraocular muscles intact ENT-moist oral mucosa Neck-supple, no thyromegaly, trachea midline Lungs-clear to auscultate, no wheeze or rales Heart-regular S1 and S2, no murmur gallop, no lower extremity edema, no carotid bruit, no JVD Abdomen-soft, nontender, no organomegaly, no rebound, bowel sounds active Extremities-no rash or deformity, Neuro- no focal neurological deficit Psych-alert awake oriented 3, normal mood and affect Lymph nodes-no lymphadenopathy Lab data as noted below. ASSESSMENT & PLAN: GI BLEED /MELANOTIC STOOL : Possible upper GI bleed History of peptic ulcer disease secondary to NSAIDs had EGD done in 2003 Takes aspirin 81 mg daily Does not take and any other NSAIDs- Patient remains n.p.o. IV Protonix drip Serial hemoglobin levels to be monitored GI evaluation requested, appreciate input Scheduled for EGD today Continue to monitor in telemetry for close monitoring of hemodynamics Past GI procedures EGD in 2003: duodenal ulcer Status post gastric bypass surgery on 05/2017 at [facility] hx of benign polyps, diverticulosis-Colonoscopies 2011, 2012, last colonoscopy on 09/2017-diverticulosis ACUTE BLOOD LOSS ANEMIA SECONDARY TO GI BLEED Hemoglobin dropped from 11.2-8.7-overnight Had 2 more melanotic stool/bloody bowel movement this morning stat H&H remains unchanged 8.7 cont to monitor H&H Q8hrs PRBC transfusion as needed if there is an acute drop of hemoglobin with active GI bleed /Hb < 7 ) / if patient is symptomatic: Tachycardic, hypotensive COLONIC DIVERTICULAR DISEASE : Recent colonoscopy on 09/2017: Diverticular disease Presents with GI bleed CT abdomen pelvis with IV contrast ordered to rule out any evidence of diverticular bleeding HYPERLIPIDEMIA : Hold statin in the setting of active GI bleed MORBID OBESITY /STATUS POST GASTRIC BYPASS SURGERY Status post gastric bypass surgery in May 2017, at [facility] [place] Lost approximately 70 pounds since 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 [facility] Dietary/nutrition is to consulted Appreciate input HISTORY OF DIABETES, Antidiabetic meds discontinued significant weight loss due to gastric bypass surgery Fasting blood sugar:103 Check hemoglobin A1c HYPOTENSION Possibly secondary to GI bleed/volume loss On presentation blood pressure was low at 80s/50s heart rate 95 sinus Blood pressure improved after IV fluids bolus Continue with normal saline at 100 mL/h Monitor H&H Transfuse PRBC as indicated CODE STATUS: Full code DVT PROPHYLAXIS Low risk SCD and teds Pharmacological anticoagulation avoided in the setting of active GI bleed Patient is encouraged to ambulate when clinically stable DISPOSITION Expected to be discharged home when medically stable Medicine follow-up with Dr. Gianna Olmos at [facility] Patient will need close follow-up with GI team as outpatient Vital Signs: Date Time Temp Pulse Resp B/P (MAP) Pulse Ox O2 Delivery O2 Flow Rate FiO2 02/12/18 08:00 36.8 71 13 115/73 (87) 99 Room Air 02/12/18 08:00 Room Air 02/12/18 04:00 96 Room Air 02/12/18 04:00 36.8 51 16 118/63 (81) 96 Room Air 02/12/18 02:51 36.6 58 58 117/63 98 Room Air 02/12/18 02:00 60 14 95/63 97 02/12/18 01:30 63 15 110/73 99 02/12/18 01:00 58 17 100/63 99 02/12/18 00:30 62 20 91/68 100 02/12/18 00:00 64 17 100/62 98 02/11/18 23:30 62 13 89/58 100 02/11/18 23:24 91/57 02/11/18 23:08 71 02/11/18 23:06 93/55 02/11/18 22:58 36.9 95 20 89/59 99 Room Air Lab Results: Results Past 24 Hours Test 02/11/18 23:13 02/12/18 04:58 02/12/18 10:24 Range/Units White Blood Count 12.92 11.53 4.8-10.8 K/uL Red Blood Count 4.02 3.13 4.7-6.1 M/uL Hemoglobin 11.4 8.7 8.7 14.0-18.0 g/dL Hematocrit 34.8 26.9 26.5 42-52 % Mean Corpuscular Volume 86.6 85.9 80-100 fL Mean Corpuscular Hemoglobin 28.4 27.8 25-34 pg Mean Corpuscular Hemoglobin Concent 32.8 32.3 32-36 g/dl Platelet Count 390 278 130-400 K/uL Mean Platelet Volume 10.4 9.9 7.4-10.4 fL Neutrophils (%) (Auto) 63.7 59.3 % Lymphocytes (%) (Auto) 27.7 32.4 % Monocytes (%) (Auto) 5.9 6.3 % Eosinophils (%) (Auto) 1.8 1.5 % Basophils (%) (Auto) 0.4 0.2 % Neutrophils # (Auto) 8.24 6.85 1.4-6.5 K/uL Lymphocytes # (Auto) 3.58 3.73 1.2-3.4 K/uL Monocytes # (Auto) 0.76 0.73 0.11-0.59 K/uL Eosinophils # (Auto) 0.23 0.17 0-0.5 K/uL Basophils # (Auto) 0.05 0.02 0-0.2 K/uL RDW Standard Deviation 45.7 45.9 36.4-46.3 fL RDW Coefficient of Variation 14.5 14.6 11.5-14.5 % Immature Granulocyte % (Auto) 0.5 0.3 % Immature Granulocyte # (Auto) 0.06 0.03 0.00-0.02 K/uL Sodium Level 141 142 136-145 mmol/L Potassium Level 4.1 4.2 3.5-5.1 mmol/L Chloride Level 107 112 98-107 mmol/L Carbon Dioxide Level 24 24 21-32 mmol/L Anion Gap 9.0 6.0 3-11 mmol/L Blood Urea Nitrogen 32 32 7-18 mg/dl Creatinine 1.17 0.82 0.60-1.40 mg/dl Est Creatinine Clear Calc Drug Dose 79.6 115.1 ml/min Estimated GFR () 78.1 111.4 Estimated GFR (Non- 67.4 96.1 BUN/Creatinine Ratio 27.7 39.2 10-20 Random Glucose 139 103 70-99 mg/dl Calcium Level 8.6 7.6 8.5-10.1 mg/dl Total Bilirubin 0.4 0.2-1 mg/dl Aspartate Amino Transf (AST/SGOT) 16 15-37 U/L Alanine Aminotransferase (ALT/SGPT) 21 12-78 U/L Alkaline Phosphatase 88 45-117 U/L Troponin I < 0.015 0-0.045 ng/ml Total Protein 7.2 6.4-8.2 gm/dl Albumin 3.5 3.4-5.0 gm/dl Globulin 3.7 2.5-4.0 gm/dl Albumin/Globulin Ratio 0.9 0.9-2 Red Blood Cell Morphology Unremarkable Microbiology Results 02/12/18 MRSA DNA Surveillance Screen - Final, Complete Specimen Negative for MRSA by DNA Probe
[2018-02-12 10:38] LABS: HEMATOCRIT 26.5 % (42-52); HEMOGLOBIN 8.7 g/dL (14.0-18.0)
[2018-02-12 10:50] LABS: INR 1.1 (0.9-1.1)
[2018-02-12] MEDS ORDERED: PROPOFOL IV EMULSION 10 MG/ML 20 ML VIAL ONE (12:34)
[2018-02-12] MEDS ORDERED: LIDOCAINE HCL 2% 2 ML VIAL (20MG/ML) ONE ×2 (12:34→13:04)
[2018-02-12] MEDS ORDERED: ONDANSETRON INJ 2 MG/ML 2 ML VIAL ONE (13:05)
[2018-02-12] MEDS ORDERED: FENTANYL CITRATE INJ 50 MCG/1 ML 2 ML VIAL ONE (13:06)
--- NOTE | 2018-02-12 13:13 | GI REPORT ---
Patient Name: Gucci Christensen Procedure Date: 02/12/2018 12:36 PM Date of : 1955 Admit Type: Inpatient Age: 62 Gender: Male Attending MD: Yomi Hammonds MD Procedure: Upper GI endoscopy Providers: Yomi Hammonds MD Referring MD: Debi Brian Indications: Hematochezia Medicines: Propofol per Anesthesia Complications: No immediate complications. Estimated blood loss: None. Estimated Blood Loss: Estimated blood loss: none. Procedure: Pre-Anesthesia Assessment: - Prior to the procedure, a History and Physical was performed, and patient medications, allergies and sensitivities were reviewed. The patient's tolerance of previous anesthesia was reviewed. - ASA Grade Assessment: IV - A patient with severe systemic disease that is a constant threat to life. After obtaining informed consent, the endoscope was passed under direct vision. Throughout the procedure, the patient's blood pressure, pulse, and oxygen saturations were monitored continuously. The scope was introduced through the mouth, and advanced to the jejunum. The upper GI endoscopy was accomplished with ease. The patient tolerated the procedure well. Findings: The examined esophagus was normal. One non-bleeding cratered gastric ulcer with a visible vessel was found at the anastomosis. The lesion was 10 mm in largest dimension. Area was successfully injected with 6 mL of a 1:10,000 solution of epinephrine for hemostasis. Coagulation for bleeding prevention using bipolar probe was successful. Evidence of a gastric bypass was found. A gastric pouch with a normal size was found. The staple line appeared intact. The gastrojejunal anastomosis was characterized by ulceration. This was traversed. Biopsies were taken from the stomach with a cold forceps for Helicobacter pylori testing. The examined jejunum was normal. Verification of patient identification for the specimen was done by the physician and nurse using the patient's name, date and medical record number. Impression: - Normal esophagus. - Non-bleeding gastric ulcer with a visible vessel. Injected. Treated with bipolar cautery. - Gastric bypass with a normal-sized pouch and intact staple line. Gastrojejunal anastomosis characterized by ulceration. Gastric remnant biopsied. - Normal examined jejunum. Recommendation: - Return patient to [facility] for ongoing care. Yomi Hammonds M.D. Yomi Hammonds MD 02/12/2018 1:13:34 PM This report has been signed electronically. Note Initiated On: 02/12/2018 12:36 PM Number of Addenda: 0 I attest to the content of the Intraoperative Record and orders documented therein, exceptions below {[id number]}
--- NOTE | 2018-02-12 13:40 | Anesthesiology Progress Note ---
Anesthesia Post Op Note Date & Time Feb 12, 2018 at 13:40 Vital Signs Pain Intensity: 0 Vital Signs Past 12 Hours Date Time Temp Pulse Resp B/P (MAP) Pulse Ox O2 Delivery O2 Flow Rate FiO2 02/12/18 13:30 52 18 127/75 (92) 98 Room Air 02/12/18 13:15 36.7 58 16 134/87 (103) 98 Room Air 02/12/18 11:45 36.9 58 18 107/66 (80) 96 Room Air 02/12/18 11:28 36.8 61 16 124/71 (88) 100 Room Air 02/12/18 08:00 36.8 71 13 115/73 (87) 99 Room Air 02/12/18 08:00 Room Air 02/12/18 04:00 96 Room Air 02/12/18 04:00 36.8 51 16 118/63 (81) 96 Room Air 02/12/18 02:51 36.6 58 58 117/63 98 Room Air 02/12/18 02:00 60 14 95/63 97 Notes Mental Status: alert / awake / arousable, participated in evaluation Pt Amnestic to Procedure: Yes Nausea / Vomiting: adequately controlled Pain: adequately controlled Airway Patency, RR, SpO2: stable & adequate BP & HR: stable & adequate Hydration State: stable & adequate Anesthetic Complications: no major complications apparent
--- NOTE | 2018-02-12 14:16 | DIAGNOSTIC IMAGING REPORT ---
CT ABD/PELVIS IV CONTRAST ONLY CLINICAL HISTORY: Gastrointestinal hemorrhage. History of diverticulosis. COMPARISON STUDY: None. TECHNIQUE: Following the IV administration of 119 mL of Optiray-320, CT scan of the abdomen and pelvis was performed from the lung bases to the proximal femurs. Images are reviewed in the axial, sagittal, and coronal planes. IV contrast was administered without complication. A dose lowering technique was utilized adhering to the principles of ALARA. CT DOSE: 1087.78 mGycm FINDINGS: Lower chest: The heart is normal in size and configuration, without pericardial effusion. The lung bases and pleural spaces are clear. Liver: The contrast-enhanced liver is normal in size, contour, and attenuation. There is no intrahepatic biliary ductal dilatation. The hepatic veins and portal veins are patent. Gallbladder: Unremarkable. Spleen: Normal in size and attenuation. Pancreas: Unremarkable. Adrenal glands: Unremarkable. Kidneys: There is right-sided nephrolithiasis. There is no hydronephrosis. There are multiple bilateral renal cysts the largest of which measures 36 mm on the right and 36 mm on the left. There is a 1 cm lower pole left renal cyst with slightly exceeds water attenuation, therefore being indeterminate. There is a 1 cm exophytic hyperdense nodule arising from the lower pole the left kidney. In addition there is an ill-defined 15 mm hypodense lesion within the lower pole the left kidney. A dedicated renal CT or MRI scan is recommended in follow-up to exclude a solid renal neoplasm. Bowel: There are no transition zones to indicate bowel obstruction. There are postsurgical changes are prior gastric bypass and presumed Pili-en-Y anastomosis. There is no evidence of acute diverticulitis. There is no evidence of acute appendicitis. Peritoneum: There is unexplained free intraperitoneal air. There is no significant ascites. Vasculature: The abdominal aorta is normal in course and caliber. Adenopathy: None. Pelvic viscera: The bladder, and pelvic viscera are unremarkable. Skeletal structures: There are advanced arthritic changes present within the right hip. There are multilevel degenerative changes within the spine. IMPRESSION: 1. Free intraperitoneal air. In the absence of recent surgery this may indicate a bowel perforation. This report will be called. 2. No evidence of bowel obstruction. 3. No evidence of acute diverticulitis. No evidence of acute appendicitis. 4. Right-sided nephrolithiasis 5. Bilateral renal cysts. In addition there are indeterminate lower pole left renal lesions. A dedicated renal CT or MRI is recommended in follow-up. Electronically signed by: Maurilio Murray M.D. 02/12/2018 2:15 PM Dictated Date/Time: 02/12/2018 2:04 PM
--- NOTE | 2018-02-12 15:01 | Progress Note ---
Progress Note Date of Service Feb 12, 2018. Progress Note ATTENDING ADDENDUM Patient had EGD done today by Dr. Hammonds, -Showed a nonbleeding gastric ulcer with visible vessel. Was injected with epinephrine for hemostasis, treated with bipolar cautery -Gastric bypass with a normal sized pouch and intact staple line. Gastrojejunal anastomosis characterized by ulceration. Gastric remnant biopsied. -Normal examined jejunum Patient was returned to telemetry Last H&H check was stable with hemoglobin of 8.7 CT abdomen pelvis with contrast-which is done after the EGD procedure: 1. Free intraperitoneal air. In the absence of recent surgery this may indicate a bowel perforation. 2. No evidence of bowel obstruction. 3. No evidence of acute diverticulitis. No evidence of acute appendicitis. 4. Right-sided nephrolithiasis 5. Bilateral renal cysts. Indeterminate lower pole left renal lesions A dedicated renal CT or MRI is recommended in follow-up. GI team updated regarding CT abdomen pelvis finding of free intraperitoneal air concern for possible perforation post Procedure /EGD -strict NPO /IV Abx with Zosyn -Surgery consult /repeat KUB in AM to assess perforation /free intraperitoneal air monitor pt in ICU -needs close monitoring of hemodynamics -GI bleed / Perforation /increased risk of peritonitis /hemodynamic compromise INCIDENTAL FINDING OF LEFT RENAL LESIONS CT abdomen pelvis findings as above: 1 cm exophytic hyperdense nodule/15 mm hypodense lesion on left lower pole of kidney Urology consult requested
[2018-02-12] MEDS ORDERED: PIPERACILL/TAZOBAC IV 3.375 GM in DEXTROSE 5% 100ML 100 ML IV ONE (15:18)
[2018-02-12] MEDS ORDERED: PIPERACILL/TAZOBAC CONSULT ACTIVE PRN ×2 (15:30)
[2018-02-12] MEDS ORDERED: MoRPHine SULFATE 2 MG/ML CARP IV PRN (15:30)
[2018-02-12] MEDS ORDERED: PIPERACILL/TAZOBAC IV 4.5 GM in D5W 100 ML IV ONE (15:45)
[2018-02-12] MEDS ORDERED: PIPERACILL/TAZOBAC IV 3.375 GM in DEXTROSE 5% 100ML 100 ML IV SCH (18:00)
--- NOTE | 2018-02-12 18:06 | DIAGNOSTIC IMAGING REPORT ---
CT OF THE ABDOMEN WITH ORAL CONTRAST CLINICAL HISTORY: Free air. COMPARISON STUDY: CT of the abdomen and pelvis February 12, 2018 1:54 PM. TECHNIQUE: Axial images of the abdomen were obtained immediately following ingestion of water soluble oral contrast. Patient was scanned in the supine and right lateral decubitus positions. FINDINGS: Lung bases are clear. The patient is status post gastric bypass. Note is made of moderate focal wall thickening with mild adjacent infiltration adjacent to the gastrojejunostomy. No extraluminal oral contrast is noted. A small amount of pneumoperitoneum is similar to CT performed earlier today. Contrast passes into the jejunum. Unenhanced images of liver, spleen, adrenal glands and pancreas are unremarkable. Water attenuation bilateral renal lesions are shown to reflect cysts on prior CT. Note is made of a 1.8 cm lesion within the lower pole of the left kidney and measures above water attenuation. A 1 cm lesion within the lower pole the left kidney also measures above water attenuation. These are indeterminate. No suspicious osseous lesion is present. There is no evidence for a bowel obstruction. Contrast within the collecting systems is from recent contrast-enhanced CT. IMPRESSION: 1. Small amount of pneumoperitoneum which suggests a perforated hollow viscus. Moderate focal wall thickening adjacent to the gastrojejunostomy may reflect an anastomotic ulcer and the source for pneumoperitoneum. However, no extravasation of oral contrast on this exam. 2. Two indeterminate lesions within the lower pole of the left kidney which may reflect hyperdense cysts or solid renal lesions. Nonemergent renal CT or MRI is recommended. Electronically signed by: Redd Palacios M.D. 02/12/2018 6:05 PM Dictated Date/Time: 02/12/2018 5:54 PM
[2018-02-12 18:33] LABS: BASO % 0.2 %; BASO ABS # 0.04 K/uL (0-0.2); EOS % 1.3 %; EOS ABS # 0.22 K/uL (0-0.5); HEMATOCRIT 27.1 % (42-52); HEMOGLOBIN 8.9 g/dL (14.0-18.0); IG# 0.05 K/uL (0.00-0.02); LYMPH % 21.9 %; LYMPH ABS # 3.81 K/uL (1.2-3.4); MEAN CELL VOLUME 86.3 fL (80-100); MEAN CORPUSCULAR HEMOGLOBIN 28.3 pg (25-34); MEAN PLATELET VOLUME 10.4 fL (7.4-10.4); MONO % 4.9 %; MONO ABS # 0.85 K/uL (0.11-0.59); NEUT % 71.4 %; NEUT ABS # 12.41 K/uL (1.4-6.5); PLATELET COUNT 299 K/uL (130-400); RED CELL DISTRIBUTION WIDTH CV 14.7 % (11.5-14.5); RED CELL DISTRIBUTION WIDTH SD 46.2 fL (36.4-46.3); WHITE BLOOD COUNT 17.38 K/uL (4.8-10.8)
[2018-02-12 18:51] LABS: ALBUMIN 3.1 gm/dl (3.4-5.0); CALCIUM 8.1 mg/dl (8.5-10.1); CREATININE 0.75 mg/dl (0.60-1.40); MEAN CORPUSCULAR HGB CONC 32.8 g/dl (32-36)
[2018-02-12 18:54] LABS: TOTAL PROTEIN 6.3 gm/dl (6.4-8.2)
--- NOTE | 2018-02-12 19:15 | Urology Consultation ---
History General Date of Service: Feb 12, 2018. Chief Complaint: Left lower pole 1 cm questionable renal lesion, right-sided kidney stones. Primary Care Physician: Gianna Olmos M.D. Pt seen a urologist before?: Yes If yes, why?: Vasectomy in the 1980s History of Present Illness 62-year-old male who was admitted to the ICU after lower GI bleed as well as a finding of free intraperitoneal air on CT scan consistent with possible hollow viscus perforation. He has no recent history but was seen in the distant past for vasectomy by urology. His hospital notes and H&P are reviewed. He has undergone CT scan imaging of the abdomen and pelvis first with IV contrast then with p.o. contrast and these images are personally reviewed. Urology service is called for incidental findings of right-sided kidney stones and a questionable left renal lesion. Patient is noted to have bilateral numerous renal cysts which are simple in their anatomy. A questionable 1 cm lesion is present in the left medial lower pole of the kidney. Patient is also noted to have nonobstructing right kidney stones and denies any previous history of stone passage, colic or surgery. He denies bothersome urinary symptoms or hematuria at baseline. IMPRESSION: 1. Free intraperitoneal air. In the absence of recent surgery this may indicate a bowel perforation. This report will be called. 2. No evidence of bowel obstruction. 3. No evidence of acute diverticulitis. No evidence of acute appendicitis. 4. Right-sided nephrolithiasis 5. Bilateral renal cysts. In addition there are indeterminate lower pole left renal lesions. A dedicated renal CT or MRI is recommended in follow-up. Imaging Imaging: CT Laboratory Last 24 Hours Test 02/11/18 23:13 02/12/18 04:58 02/12/18 10:24 02/12/18 18:12 White Blood Count 12.92 K/uL 11.53 K/uL 17.38 K/uL Red Blood Count 4.02 M/uL 3.13 M/uL 3.14 M/uL Hemoglobin 11.4 g/dL 8.7 g/dL 8.7 g/dL 8.9 g/dL Hematocrit 34.8 % 26.9 % 26.5 % 27.1 % Mean Corpuscular Volume 86.6 fL 85.9 fL 86.3 fL Mean Corpuscular Hemoglobin 28.4 pg 27.8 pg 28.3 pg Mean Corpuscular Hemoglobin Concent 32.8 g/dl 32.3 g/dl 32.8 g/dl Platelet Count 390 K/uL 278 K/uL 299 K/uL Mean Platelet Volume 10.4 fL 9.9 fL 10.4 fL Neutrophils (%) (Auto) 63.7 % 59.3 % 71.4 % Lymphocytes (%) (Auto) 27.7 % 32.4 % 21.9 % Monocytes (%) (Auto) 5.9 % 6.3 % 4.9 % Eosinophils (%) (Auto) 1.8 % 1.5 % 1.3 % Basophils (%) (Auto) 0.4 % 0.2 % 0.2 % Neutrophils # (Auto) 8.24 K/uL 6.85 K/uL 12.41 K/uL Lymphocytes # (Auto) 3.58 K/uL 3.73 K/uL 3.81 K/uL Monocytes # (Auto) 0.76 K/uL 0.73 K/uL 0.85 K/uL Eosinophils # (Auto) 0.23 K/uL 0.17 K/uL 0.22 K/uL Basophils # (Auto) 0.05 K/uL 0.02 K/uL 0.04 K/uL RDW Standard Deviation 45.7 fL 45.9 fL 46.2 fL RDW Coefficient of Variation 14.5 % 14.6 % 14.7 % Immature Granulocyte % (Auto) 0.5 % 0.3 % 0.3 % Immature Granulocyte # (Auto) 0.06 K/uL 0.03 K/uL 0.05 K/uL Sodium Level 141 mmol/L 142 mmol/L 138 mmol/L Potassium Level 4.1 mmol/L 4.2 mmol/L 4.0 mmol/L Chloride Level 107 mmol/L 112 mmol/L 107 mmol/L Carbon Dioxide Level 24 mmol/L 24 mmol/L 24 mmol/L Anion Gap 9.0 mmol/L 6.0 mmol/L 7.0 mmol/L Blood Urea Nitrogen 32 mg/dl 32 mg/dl 23 mg/dl Creatinine 1.17 mg/dl 0.82 mg/dl 0.75 mg/dl Est Creatinine Clear Calc Drug Dose 79.6 ml/min 115.1 ml/min 125.7 ml/min Estimated GFR () 78.1 111.4 115.6 Estimated GFR (Non- 67.4 96.1 99.7 BUN/Creatinine Ratio 27.7 39.2 30.1 Random Glucose 139 mg/dl 103 mg/dl 93 mg/dl Calcium Level 8.6 mg/dl 7.6 mg/dl 8.1 mg/dl Total Bilirubin 0.4 mg/dl 0.5 mg/dl Aspartate Amino Transf (AST/SGOT) 16 U/L 13 U/L Alanine Aminotransferase (ALT/SGPT) 21 U/L 19 U/L Alkaline Phosphatase 88 U/L 79 U/L Troponin I < 0.015 ng/ml Total Protein 7.2 gm/dl 6.3 gm/dl Albumin 3.5 gm/dl 3.1 gm/dl Globulin 3.7 gm/dl 3.2 gm/dl Albumin/Globulin Ratio 0.9 1.0 Red Blood Cell Morphology Unremarkable Prothrombin Time 11.4 SECONDS Prothromb Time International Ratio 1.1 Lactic Acid Level 1.1 mmol/L Direct Bilirubin 0.2 mg/dl Problem List Medical Problems: (1) Hypotension Status: Acute (2) Upper GI bleed Status: Acute Past History diabetes, GI bleed (lower), hypertension, other (Morbid obesity, sleep apnea, hyperlipidemia) Past Surgical History: colonoscopy, EGD, gastric bypass, tonsillectomy, vasectomy, other (Knee surgery) Family History Father with cancer, HTN, mother with thyroid issues, eye difficulties, DM. Social History Hx Tobacco Use In Past Year?: Yes Smoking: quit greater than 1 year (6 pack years) Alcohol: history of alcohol abuse, no current use Marital status: Occupation status: disabled Immunizations History of Tetanus Vaccine?: No History of Pneumococcal: No History of Hepatitis B Vaccine: No History of MDRO No Allergies Coded Allergies: Chocolate (Verified Allergy, Intermediate, ., 02/12/18) Naproxen (Verified Allergy, Intermediate, RASH, 08/24/09) Uncoded Allergies: NONSTEROIDAL (Adverse Reaction, Intermediate, NO NSAID'S PER DR MERCADO- GI BLEED, 08/24/09) Medications Home Medications: Home Meds and Scripts Medications Dose Route/Sig Max Daily Dose Days Date Category Lipitor (Atorvastatin Calcium) 20 Mg Tab 20 Mg PO DAILY 02/12/18 Rx Cyanocobalamin 1,000 Mcg/Ml Inj 1 Ml INJ Q 3 MONTHS 02/12/18 Reported Ultram (Tramadol HCl) 50 Mg Tab 50 Mg PO Q8H PRN 02/12/18 Reported Calcium 600 + D (Calcium Carbonate-Vitamin D) 1 Tab Tab 1 Tab PO DAILY 02/12/18 Reported Flintstones Gummies Compl (Pediatric Multiple Vitamin W/) 1 Chw Chw 2 Tabs PO DAILY 02/12/18 Reported Aspirin Ec (Aspirin) 81 Mg Tab 81 Mg PO DAILY 02/12/18 Reported Inpatient Medications: Current Inpatient Medications Medications (Trade) Dose Ordered Sig/Debbie Route Start Time Stop Time Status Last Admin Dose Admin Sodium Chloride 1,000 ml @ 100 mls/hr Q10H IV 02/12/18 05:00 03/14/18 04:59 02/12/18 15:16 100 MLS/HR Ondansetron HCl (Zofran Inj) 4 mg Q6H PRN IV 02/12/18 01:45 03/14/18 01:44 Nitroglycerin (Nitrostat Tab) 0.4 mg UD PRN SL 02/12/18 01:45 03/14/18 01:44 Ioversol (Optiray 320) 100 ml UD PRN IV 02/12/18 10:15 02/16/18 10:14 Pantoprazole Sodium 40 mg/ Syringe 10 ml @ 5 mls/min BID IV 02/12/18 21:00 03/14/18 20:59 Miscellaneous Information (Consult) 1 ea UD PRN N/A 02/12/18 15:30 03/14/18 15:29 Morphine Sulfate (MoRPHine SULFATE INJ) 1 mg Q4 PRN IV 02/12/18 15:30 02/26/18 15:29 Piperacillin Sod/ Tazobactam Sod 4.5 gm/Dextrose 120 ml @ 30 mls/hr Q8H IV 02/12/18 21:00 02/22/18 20:59 Review of Systems Review of Systems Constitutional: + weight loss, No fever, No chills Eyes: No eye pain Neurological: No seizures Endocrine: + too cold, + tired/sluggish Gastrointestinal: No constipation Cardiovascular: No angina, No irregular heartbeat Respiratory: No shortness of breath, No coughing up blood Skin: No dry skin Musculoskeletal: No back pain Ears / Nose / Throat: No hearing loss, No sinus Psychologic / Mental: No difficulty sleeping Male : + see HPI, No blood in urine, No kidney stones Physical Exam Vital Signs: Vital Signs Past 12 Hours Date Time Temp Pulse Resp B/P (MAP) Pulse Ox O2 Delivery O2 Flow Rate FiO2 02/12/18 13:42 51 18 116/73 (87) 96 Room Air 02/12/18 13:30 52 18 127/75 (92) 98 Room Air 02/12/18 13:15 36.7 58 16 134/87 (103) 98 Room Air 02/12/18 11:45 36.9 58 18 107/66 (80) 96 Room Air 02/12/18 11:28 36.8 61 16 124/71 (88) 100 Room Air 02/12/18 08:00 36.8 71 13 115/73 (87) 99 Room Air 02/12/18 08:00 Room Air Physical Exam: General Appearance: no apparent distress, + obese ENT: normal ENT inspection, hearing grossly normal Neck: supple, no adenopathy Respiratory/Chest: no respiratory distress, no accessory muscle use Cardiovascular: no JVD Gastrointestinal: Abdomen: normal abdomen Bladder: normal bladder Renal: normal renal Hernia: absent hernia Spleen: normal spleen Extremities: non-tender Neurologic/Psychiatric: alert, oriented x 3 Skin: normal color Assessment & Plan Assessment & Plan A/P 62-year-old male with right sided urolithiasis, bilateral renal cysts and a questionable 1 cm left lower pole lesion. Findings reviewed with patient. Regarding his right-sided kidney stones these have remained asymptomatic in the past and no acute intervention should be necessary. His simple renal cysts should not require follow-up. His left lower pole renal lesion, being small in size, should not require acute intervention. Even if known to be a renal cell carcinoma aggressive behavior would be unlikely at a size <3 cm. I suspect that there is a good chance this represents a complex or hyperdense cyst. My plan would be to obtain a renal mass protocol MRI in approximately 6 months time to ensure a lack of worrisome findings or change. Will however arrange for an outpatient KUB for follow-up of his right-sided kidney stones in the next couple months with our service. No acute intervention should be required over the course of his acute hospitalization. Patient vocalizes good understanding of the treatment plan. Thank you for allowing us to participate in this patient's acute inpatient care. Please contact our service with any questions or concerns.
--- NOTE | 2018-02-12 20:33 | SURGICAL CONSULTATION ---
DATE OF CONSULTATION: 02/12/2018 HISTORY OF PRESENT ILLNESS: I have been asked by Dr. Brian to see this 62-year-old male who presented to the Emergency Room with a complaint of melena and hematochezia that began last night. The patient also had some dizziness and lightheadedness, but did not have syncope. He underwent a gastric bypass surgery back in 05/2017. He has lost about 100 pounds. He has been in his usual state of health where he was able to eat. His bowels were moving. He is not having any nausea. He did not have any vomiting and there was no hematemesis. He was noted on admission to have a hemoglobin of 11.4 and 34.8, but that it decreased to 8.7 and 26.9 today. He remained hemodynamically stable and has not required transfusion. Today, he underwent an EGD. An anastomotic ulcer was noted at the site of the gastrojejunostomy. There was a visible vessel. There was no active bleeding. The epinephrine was injected and treated also with endoscopic techniques. He has not had any further melena. He underwent a CT scan that was performed for the evaluation of possible diverticulitis. He was having some very mild left lower quadrant tenderness, but denied pain. The scan identified free air within the abdominal cavity. At present, he denies pain. He stated it only hurts when you press in the left side. He has again continued to remain hemodynamically stable. PAST MEDICAL HISTORY: Includes obesity, hyperlipidemia, diabetes, hypertension, sleep apnea. He is not requiring antihypertensives or diabetic meds since the bypass. PAST SURGICAL HISTORY: Gastric bypass. He has also had a T and A and some knee surgery on the right side. MEDICATIONS: At the present time include pantoprazole, Zosyn, morphine, Zofran, nitroglycerin p.r.n. ALLERGIES: CHOCOLATE, NONSTEROIDALS. PHYSICAL EXAMINATION: GENERAL: Reveals a gentleman who is resting comfortably and appears in no acute distress. VITAL SIGNS: Blood pressure 116/73, heart rate 51, respirations 18, temperature 36.7, pulse oximetry is 96% on room air. HEENT: Reveals his sclerae to be anicteric. Mucous membranes are moist. NECK: Supple, with no adenopathy. BACK: Has no spinal or CVA tenderness. LUNGS: Clear. HEART: Regular. ABDOMEN: Has normoactive bowel sounds, is soft, nondistended. There is some mild tenderness to moderate palpation in the left lower quadrant, but no upper abdominal tenderness. MOST RECENT LABORATORY DATA: Reveals WBC of 11.53, H and H of 8.7 and 26.5, platelet count of 278,000. Sodium 142, potassium 4.2, chloride 112, CO2 is 24, BUN 32, creatinine 0.82, and glucose 103. RADIOLOGY: He underwent a repeat CAT scan with Gastrografin oral contrast. There was no evidence of extravasation. ASSESSMENT AND PLAN: This patient has free air. There was no evidence of other GI source. It is presumably from the area of the ulcer. There is no evidence of free perforation; however. He has no evidence of peritonitis. The CAT scan demonstrated no evidence of extravasation. We will keep him n.p.o. I would place him on a high-dose PPI, Cytotec, and Carafate have also been recommended. We will continue to follow with you. Thank you for allowing me to see this patient and participate in his care.
--- NOTE | 2018-02-12 20:40 | Critical Care Consultation ---
Critical Care Consultation Date of Consultation: Feb 12, 2018. Attending Physician: Debi Brian M.D. Reason for Consultation: 62-year-old male status post upper endoscopy with cauterization of gastric ulcer with superficial vessel. Free intraperineal free air found status post intervention requiring close hemodynamic monitoring for GI Bleed and possible early perforation. History of Present Illness Patient is a 62-year-old male with a recent past medical history of gastric bypass surgery performed in May 2017 at [facility]. After this intervention, the patient has lost approximately 100 pounds. With this weight loss, the patient has had improved blood pressure control as well as glycemic control allowing him to decrease his outpatient medications, specifically antihypertensives and metformin. Patient does report a significant past medical history of osteoarthritis with significant pain to the bilateral hips and knees. He takes Ultram for breakthrough pain symptoms. He has not utilized any [id number] NSAIDs as directed by his surgeon status post gastric bypass procedure. He does take Tylenol sparingly for breakthrough symptoms. Last evening, the patient did note increasing melanotic stools which prompted her arrival to the emergency department. While in the ED, he was found to be slightly hypotensive. He responded well to IV fluid resuscitation. He underwent upper endoscopy today where a gastric ulcer was found with associated superficial vessel which was cauterized and injected locally with epinephrine. After this procedure, a CT of the abdomen pelvis was obtained to evaluate for further pathology. On CT, there is concern for free air without active extravasation appreciated. The patient has had persistent melanotic stools since arrival in the ICU. He could has no complaints of abdominal discomfort. He is not nauseous. He has not vomited. The patient has not required PRBCs to this point. On evaluation in the ICU, the patient is resting comfortably. He is awake, alert, and oriented. He offers no complaints other than feeling tired at this time. He reports persistent melanotic stools without bryon red blood. He denies any headaches, dizziness, lightheadedness, chest pain, palpitations, shortness of breath, nausea, vomiting, abdominal pain, hematuria, or dysuria. Past Medical/Surgical History Medical Problems: (1) GI bleed Surgical Problems: (1) H/O colonoscopy (2) H/O gastric bypass Social History Smoking Status: Never Smoker Smokeless Tobacco Use: No Alcohol Use: none Drug Use: none Marital Status: Housing Status: lives with family Occupation Status: disabled Allergies Coded Allergies: Chocolate (Verified Allergy, Intermediate, ., 02/12/18) Naproxen (Verified Allergy, Intermediate, RASH, 08/24/09) Uncoded Allergies: NONSTEROIDAL (Adverse Reaction, Intermediate, NO NSAID'S PER DR MERCADO- GI BLEED, 08/24/09) Home Medications Scheduled Aspirin (Aspirin Ec), 81 MG PO DAILY Atorvastatin (Lipitor), 20 MG PO DAILY Calcium Carbonate-Vitamin D (Calcium 600 + D), 1 TAB PO DAILY Cyanocobalamin (Cyanocobalamin), 1 ML INJ q 3 months Pediatric Multiple Vitamin W/ (Flintstones Gummies Compl), 2 TABS PO DAILY Scheduled PRN Tramadol (Ultram), 50 MG PO Q8H PRN for Pain Current Inpatient Medications Current Inpatient Medications Medications (Trade) Dose Ordered Sig/Debbie Route Start Time Stop Time Status Last Admin Dose Admin Sodium Chloride 1,000 ml @ 100 mls/hr Q10H IV 02/12/18 05:00 03/14/18 04:59 02/12/18 15:16 100 MLS/HR Ondansetron HCl (Zofran Inj) 4 mg Q6H PRN IV 02/12/18 01:45 03/14/18 01:44 Nitroglycerin (Nitrostat Tab) 0.4 mg UD PRN SL 02/12/18 01:45 03/14/18 01:44 Ioversol (Optiray 320) 100 ml UD PRN IV 02/12/18 10:15 02/16/18 10:14 Pantoprazole Sodium 40 mg/ Syringe 10 ml @ 5 mls/min BID IV 02/12/18 21:00 03/14/18 20:59 Miscellaneous Information (Consult) 1 ea UD PRN N/A 02/12/18 15:30 03/14/18 15:29 Morphine Sulfate (MoRPHine SULFATE INJ) 1 mg Q4 PRN IV 02/12/18 15:30 02/26/18 15:29 Piperacillin Sod/ Tazobactam Sod 4.5 gm/Dextrose 120 ml @ 30 mls/hr Q8H IV 02/12/18 21:00 02/22/18 20:59 Review of Systems A complete 10-point Review of Systems was discussed with the patient, with pertinent positives and negatives listed in the History of Present Illness. All remaining Review of Systems questions can be considered negative unless otherwise specified. Physical Exam Date Time Temp Pulse Resp B/P (MAP) Pulse Ox O2 Delivery O2 Flow Rate FiO2 02/12/18 19:59 36.6 68 15 138/80 (99) 99 Room Air 02/12/18 13:42 51 18 116/73 (87) 96 Room Air 02/12/18 13:30 52 18 127/75 (92) 98 Room Air 02/12/18 13:15 36.7 58 16 134/87 (103) 98 Room Air 02/12/18 11:45 36.9 58 18 107/66 (80) 96 Room Air 02/12/18 11:28 36.8 61 16 124/71 (88) 100 Room Air 02/12/18 08:00 36.8 71 13 115/73 (87) 99 Room Air 02/12/18 08:00 Room Air 02/12/18 04:00 96 Room Air 02/12/18 04:00 36.8 51 16 118/63 (81) 96 Room Air 02/12/18 02:51 36.6 58 58 117/63 98 Room Air 02/12/18 02:00 60 14 95/63 97 02/12/18 01:30 63 15 110/73 99 02/12/18 01:00 58 17 100/63 99 02/12/18 00:30 62 20 91/68 100 02/12/18 00:00 64 17 100/62 98 02/11/18 23:30 62 13 89/58 100 02/11/18 23:24 91/57 02/11/18 23:08 71 02/11/18 23:06 93/55 02/11/18 22:58 36.9 95 20 89/59 99 Room Air VITAL SIGNS - Vital signs and nursing notes were reviewed. GENERAL - 62-year-old male appearing his stated age who is in no acute distress. Communicates well with provider and answers questions appropriately. SKIN - Without rashes. HEAD - NC/AT. EYES - PERRL with EOMI bilaterally. Sclera anicteric. Palpebral pale and moist with no injection noted. EARS - No deformities of external structures noted on gross examination bilaterally. No pain elicited with palpation of the tragus bilaterally. External auditory canals without discharge or otorrhea. NOSE - Midline and without cyanosis. No epistaxis or purulent drainage noted. Septum midline without deviation or septal hematoma noted. MOUTH/OROPHARYNX - Without perioral cyanosis. Buccal mucosa pale and moist and without leukoplakia. Tongue midline with equal elevation of palate bilaterally. No tonsillar hypertrophy, erythema, or exudates noted. NECK - Neck with FROM. Supple to palpation. No lymphadenopathy noted. No nuchal rigidity. LUNGS - Chest wall symmetric without accessory muscle use, intercostals retractions, or central cyanosis. Normal vesicular breath sounds CTA B/L. No wheezes, rales, or rhonchi appreciated. CARDIAC - RRR with S1/S2. No murmur, rubs, or gallops appreciated. ABDOMEN - Abdominal contour obese without pulsations or visible masses. BS normoactive all four quadrants. No tenderness, palpable masses, hepatosplenomegaly, or ascites noted. EXTREMITIES - No clubbing or peripheral cyanosis. No pretibial edema present. +3 /5 radial and dorsalis pedis pulses palpated throughout. +5/5 strength noted in UE/LE bilaterally. NEUROLOGIC - Cranial nerves II through XII grossly intact. Sensory intact to light touch throughout. PSYCH - A&Ox3 and cooperates fully with examiner. Pt is very pleasant and interacts well with examiner. Laboratory Results Last 24 Hours Test 02/11/18 23:13 02/12/18 04:58 02/12/18 10:24 02/12/18 18:12 White Blood Count 12.92 K/uL 11.53 K/uL 17.38 K/uL Red Blood Count 4.02 M/uL 3.13 M/uL 3.14 M/uL Hemoglobin 11.4 g/dL 8.7 g/dL 8.7 g/dL 8.9 g/dL Hematocrit 34.8 % 26.9 % 26.5 % 27.1 % Mean Corpuscular Volume 86.6 fL 85.9 fL 86.3 fL Mean Corpuscular Hemoglobin 28.4 pg 27.8 pg 28.3 pg Mean Corpuscular Hemoglobin Concent 32.8 g/dl 32.3 g/dl 32.8 g/dl Platelet Count 390 K/uL 278 K/uL 299 K/uL Mean Platelet Volume 10.4 fL 9.9 fL 10.4 fL Neutrophils (%) (Auto) 63.7 % 59.3 % 71.4 % Lymphocytes (%) (Auto) 27.7 % 32.4 % 21.9 % Monocytes (%) (Auto) 5.9 % 6.3 % 4.9 % Eosinophils (%) (Auto) 1.8 % 1.5 % 1.3 % Basophils (%) (Auto) 0.4 % 0.2 % 0.2 % Neutrophils # (Auto) 8.24 K/uL 6.85 K/uL 12.41 K/uL Lymphocytes # (Auto) 3.58 K/uL 3.73 K/uL 3.81 K/uL Monocytes # (Auto) 0.76 K/uL 0.73 K/uL 0.85 K/uL Eosinophils # (Auto) 0.23 K/uL 0.17 K/uL 0.22 K/uL Basophils # (Auto) 0.05 K/uL 0.02 K/uL 0.04 K/uL RDW Standard Deviation 45.7 fL 45.9 fL 46.2 fL RDW Coefficient of Variation 14.5 % 14.6 % 14.7 % Immature Granulocyte % (Auto) 0.5 % 0.3 % 0.3 % Immature Granulocyte # (Auto) 0.06 K/uL 0.03 K/uL 0.05 K/uL Sodium Level 141 mmol/L 142 mmol/L 138 mmol/L Potassium Level 4.1 mmol/L 4.2 mmol/L 4.0 mmol/L Chloride Level 107 mmol/L 112 mmol/L 107 mmol/L Carbon Dioxide Level 24 mmol/L 24 mmol/L 24 mmol/L Anion Gap 9.0 mmol/L 6.0 mmol/L 7.0 mmol/L Blood Urea Nitrogen 32 mg/dl 32 mg/dl 23 mg/dl Creatinine 1.17 mg/dl 0.82 mg/dl 0.75 mg/dl Est Creatinine Clear Calc Drug Dose 79.6 ml/min 115.1 ml/min 125.7 ml/min Estimated GFR () 78.1 111.4 115.6 Estimated GFR (Non- 67.4 96.1 99.7 BUN/Creatinine Ratio 27.7 39.2 30.1 Random Glucose 139 mg/dl 103 mg/dl 93 mg/dl Calcium Level 8.6 mg/dl 7.6 mg/dl 8.1 mg/dl Total Bilirubin 0.4 mg/dl 0.5 mg/dl Aspartate Amino Transf (AST/SGOT) 16 U/L 13 U/L Alanine Aminotransferase (ALT/SGPT) 21 U/L 19 U/L Alkaline Phosphatase 88 U/L 79 U/L Troponin I < 0.015 ng/ml Total Protein 7.2 gm/dl 6.3 gm/dl Albumin 3.5 gm/dl 3.1 gm/dl Globulin 3.7 gm/dl 3.2 gm/dl Albumin/Globulin Ratio 0.9 1.0 Red Blood Cell Morphology Unremarkable Prothrombin Time 11.4 SECONDS Prothromb Time International Ratio 1.1 Lactic Acid Level 1.1 mmol/L Direct Bilirubin 0.2 mg/dl Procalcitonin < 0.05 ng/ml Diagnostic Results Radiological imaging and reports were reviewed by myself. Radiologist's Interpretation as follows: CT ABD/PELVIS IV CONTRAST ONLY CLINICAL HISTORY: Gastrointestinal hemorrhage. History of diverticulosis. COMPARISON STUDY: None. TECHNIQUE: Following the IV administration of 119 mL of Optiray-320, CT scan of the abdomen and pelvis was performed from the lung bases to the proximal femurs. Images are reviewed in the axial, sagittal, and coronal planes. IV contrast was administered without complication. A dose lowering technique was utilized adhering to the principles of ALARA. CT DOSE: 1087.78 mGycm FINDINGS: Lower chest: The heart is normal in size and configuration, without pericardial effusion. The lung bases and pleural spaces are clear. Liver: The contrast-enhanced liver is normal in size, contour, and attenuation. There is no intrahepatic biliary ductal dilatation. The hepatic veins and portal veins are patent. Gallbladder: Unremarkable. Spleen: Normal in size and attenuation. Pancreas: Unremarkable. Adrenal glands: Unremarkable. Kidneys: There is right-sided nephrolithiasis. There is no hydronephrosis. There are multiple bilateral renal cysts the largest of which measures 36 mm on the right and 36 mm on the left. There is a 1 cm lower pole left renal cyst with slightly exceeds water attenuation, therefore being indeterminate. There is a 1 cm exophytic hyperdense nodule arising from the lower pole the left kidney. In addition there is an ill-defined 15 mm hypodense lesion within the lower pole the left kidney. A dedicated renal CT or MRI scan is recommended in follow-up to exclude a solid renal neoplasm. Bowel: There are no transition zones to indicate bowel obstruction. There are postsurgical changes are prior gastric bypass and presumed Pili-en-Y anastomosis. There is no evidence of acute diverticulitis. There is no evidence of acute appendicitis. Peritoneum: There is unexplained free intraperitoneal air. There is no significant ascites. Vasculature: The abdominal aorta is normal in course and caliber. Adenopathy: None. Pelvic viscera: The bladder, and pelvic viscera are unremarkable. Skeletal structures: There are advanced arthritic changes present within the right hip. There are multilevel degenerative changes within the spine. IMPRESSION: 1. Free intraperitoneal air. In the absence of recent surgery this may indicate a bowel perforation. This report will be called. 2. No evidence of bowel obstruction. 3. No evidence of acute diverticulitis. No evidence of acute appendicitis. 4. Right-sided nephrolithiasis 5. Bilateral renal cysts. In addition there are indeterminate lower pole left renal lesions. A dedicated renal CT or MRI is recommended in follow-up. CT OF THE ABDOMEN WITH ORAL CONTRAST CLINICAL HISTORY: Free air. COMPARISON STUDY: CT of the abdomen and pelvis February 12, 2018 1:54 PM. TECHNIQUE: Axial images of the abdomen were obtained immediately following ingestion of water soluble oral contrast. Patient was scanned in the supine and right lateral decubitus positions. FINDINGS: Lung bases are clear. The patient is status post gastric bypass. Note is made of moderate focal wall thickening with mild adjacent infiltration adjacent to the gastrojejunostomy. No extraluminal oral contrast is noted. A small amount of pneumoperitoneum is similar to CT performed earlier today. Contrast passes into the jejunum. Unenhanced images of liver, spleen, adrenal glands and pancreas are unremarkable. Water attenuation bilateral renal lesions are shown to reflect cysts on prior CT. Note is made of a 1.8 cm lesion within the lower pole of the left kidney and measures above water attenuation. A 1 cm lesion within the lower pole the left kidney also measures above water attenuation. These are indeterminate. No suspicious osseous lesion is present. There is no evidence for a bowel obstruction. Contrast within the collecting systems is from recent contrast-enhanced CT. IMPRESSION: 1. Small amount of pneumoperitoneum which suggests a perforated hollow viscus. Moderate focal wall thickening adjacent to the gastrojejunostomy may reflect an anastomotic ulcer and the source for pneumoperitoneum. However, no extravasation of oral contrast on this exam. 2. Two indeterminate lesions within the lower pole of the left kidney which may reflect hyperdense cysts or solid renal lesions. Nonemergent renal CT or MRI is recommended. Assessment & Plan (1) Intra-abdominal free air of unknown etiology (2) GI bleed (3) Upper GI bleed (4) Hypotension Reason Critically Ill: 62-year-old male status post upper endoscopy with cauterization of gastric ulcer with superficial vessel. Free intraperineal free air found status post intervention requiring close hemodynamic monitoring for GI Bleed and possible early perforation. Neuro - * CAM ICU: NEGATIVE * Pain - Morphine PRN * Avoid NSAIDS in the post gastric bypass patient. Cardiac - * HTN: * Previously on Rx. Now controlled, with weight loss alone. * Monitor closely for hemodynamic instability in the setting of UGIB. * Transfuse as needed. * Monitor on telemetry. * EKGs for any changes. Respiratory - * h/o ELI: * Use home setup. * Supplemental O2 PRN GI - * GIB 2/2 Likely Anastomotic Bleed Versus Gastric Ulcer Bleed, w/ Intraperitoneal Free Air: * s/p upper endoscopy w/ cautery of superficial gastric ulcer vessel. * Persistent melanotic stools. * Continue w/ Protonix * Monitor for worsening bleeding. * Monitor for any s/s of worsening free air. * Appreciate GI/Gen Surg Consultations. RENAL/LYTES - * No worrisome electrolyte derangements at this point. * IVF: NSS@100mL/hr - * No concerns at this time. ENDO - * h/o Borderline DM: * Currently controlled w/ diet. * BSGs w/ ISS/gtt per protocol. HEME - * UGIB: * Trend H&H * Transfuse as needed. ID - * Prophylaxis w/ Zosyn w/ findings of free air. LINES/IV ACCESS - * PIVs x2 DVT PROPHYLAXIS - * Hold on Chemoprophylaxis in the setting of UGIB. * SCDs. I have personally spent 35 minutes of critical care time in the direct management of this patient. This is a life/limb threatening event. This includes time spent evaluating patient, direct bedside care, chart review, placing orders, interpretation of diagnostic studies, discussion with consultants, patient, and family members, as well as other required patient management activities. This time is exclusive of all separately billable procedures, and teaching time and separate from and in addition to any other critical care service time. Thank you for this consultation allow us to be part of this patient's care. Please refer to my attending physician's documentation for any further recommendations. I have personally evaluated and examined this patient. I agree with assessment and plan of Devante Templeton PA-C. During my evaluation which occurred from [id number], I coordinated care with Dr. Hernandez of general surgery as well as gastroenterology. Patient will be on PPI, per general surgery recommendations Carafate and misoprostol will be added. There is no extravasation of Gastrografin on CT findings, this felt this time the intra-peritoneal air is likely secondary from injection into the ulcer crater to achieve hemostasis. I have personally spent 40 minutes of critical care time in the direct management of this patient. This is a life/limb threatening event. This includes time spent evaluating patient, direct bedside care, chart review, placing orders, interpretation of diagnostic studies, discussion with consultants, patient, and/or family members regarding treatment decisions, as well as other required patient management activities. This time is exclusive of all separately billable procedures, and teaching time and separate from and in addition to any other critical care service time. Problem Qualifiers (1) GI bleed: Gastritis type: unspecified gastritis (2) Hypotension: Hypotension type: unspecified hypotension type Qualified Codes: I95.9 - Hypotension, unspecified
[2018-02-12] MEDS ORDERED: MISOPROSTOL 100 MCG TAB PO SCH (21:00)
[2018-02-12] MEDS ORDERED: ICU PROTOCOL FOR HYPERGLYCEMIA PRN (21:30)
[2018-02-12 23:00] LABS: HEMATOCRIT 25.6 % (42-52); HEMOGLOBIN 8.2 g/dL (14.0-18.0)
[2018-02-13] VITALS (22 sets, daily range): BP systolic 94–129; BP diastolic 52–81; PULSE 51–80; TEMP 36.6–36.7; O2SAT 95–100
[2018-02-13] MEDS: PANTOprazole INJ 40 MG in SYRINGE 0 ML IV SCH ×3 (01:26→22:59)
[2018-02-13] MEDS: PIPERACILL/TAZOBAC IV 4.5 GM in D5W 100 ML IV SCH ×4 (01:26→23:00)
[2018-02-13] MEDS: SODIUM CHLORIDE 0.9% 1000ML 1,000 ML IV SCH ×3 (03:12→22:59)
[2018-02-13 05:07] LABS: BASO % 0.2 %; BASO ABS # 0.02 K/uL (0-0.2); EOS % 3.3 %; EOS ABS # 0.33 K/uL (0-0.5); HEMATOCRIT 24.6 % (42-52); HEMOGLOBIN 8.1 g/dL (14.0-18.0); IG# 0.02 K/uL (0.00-0.02); LYMPH % 25.8 %; LYMPH ABS # 2.58 K/uL (1.2-3.4); MEAN CELL VOLUME 86.3 fL (80-100); MEAN CORPUSCULAR HEMOGLOBIN 28.4 pg (25-34); MEAN CORPUSCULAR HGB CONC 32.9 g/dl (32-36); MEAN PLATELET VOLUME 10.5 fL (7.4-10.4); MONO % 5.3 %; MONO ABS # 0.53 K/uL (0.11-0.59); NEUT % 65.2 %; NEUT ABS # 6.52 K/uL (1.4-6.5); PLATELET COUNT 269 K/uL (130-400); RED CELL DISTRIBUTION WIDTH CV 14.5 % (11.5-14.5); RED CELL DISTRIBUTION WIDTH SD 46.2 fL (36.4-46.3)
[2018-02-13 05:45] LABS: CALCIUM 7.9 mg/dl (8.5-10.1); CREATININE 0.76 mg/dl (0.60-1.40); POTASSIUM 3.7 mmol/L (3.5-5.1)
--- NOTE | 2018-02-13 07:25 | DIAGNOSTIC IMAGING REPORT ---
KUB CLINICAL HISTORY: Bowel perforation COMPARISON STUDY: CT scan dated 02/12/2018 FINDINGS: There is contrast within nondilated colon. No extraluminal contrast is visualized. There are multilevel degenerative changes in the spine. 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 There is a tiny right renal calculus. IMPRESSION: 1. Contrast within nondilated colon. No extraluminal contrast identified. 2. Tiny right renal calculus. Electronically signed by: Maurilio Murray M.D. 02/13/2018 7:24 AM Dictated Date/Time: 02/13/2018 7:22 AM
[2018-02-13 08:06] LABS: HEMOGLOBIN A1C 5.2 % (4.5-5.6)
--- NOTE | 2018-02-13 09:36 | Critical Care Progress Note ---
Critical Care Progress Note Date of Service Feb 13, 2018. ICU Day ICU Day Number: [address] Zabala Subjective There is a 62-year-old male that was admitted yesterday for GI bleed. He has a history of gastric bypass in the fall of last year. He did have a GI bleed 14 years ago. Endoscopy performed yesterday and an ulcer was identified. Cautery and epinephrine injection by Dr. Hammonds was performed. Patient has no abdominal pain this morning. He has no nausea or vomiting. No fever, sweats, rigors. H&H is steady with a hemoglobin of 8.1. CT scan of the belly yesterday with some question of free air. KUB this morning reveals contrast within the nondilated colon. There is no extraluminal contrast identified to suggest perforation of viscus. There is a tiny right renal calculus. Patient does continue to stool and with evidence of heme. Patient has no other acute complaints. KUB CLINICAL HISTORY: Bowel perforation COMPARISON STUDY: CT scan dated 02/12/2018 FINDINGS: There is contrast within nondilated colon. No extraluminal contrast is visualized. There are multilevel degenerative changes in the spine. 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 There is a tiny right renal calculus. IMPRESSION: 1. Contrast within nondilated colon. No extraluminal contrast identified. 2. Tiny right renal calculus. Electronically signed by: Maurilio Murray M.D. 02/13/2018 7:24 AM Objective GENERAL : No acute distress. Pleasant and talkative EYES: No icterus, gaze conjugate. PERRLA NOSE: No evidence of epistaxis MOUTH: No lesions or candidiasis. NECK: Supple. LUNGS: CTA B/L, no wheezes, rales or rhonchi. Breath sounds equal bilaterally HEART: Regular, rate controlled. Normal sinus rhythm on telemetry ABDOMEN: Soft, NT, ND, BS Present. No rebound tenderness or guarding EXTREMITIES: No LE edema, pedal pulses intact. NEURO: A&OX3 Assessment & Plan There is a 62-year-old male that presented with GI bleed yesterday. EGD with gastric ulcer with superficial vessel with evidence of bleeding. Patient underwent cautery and epinephrine injection with Dr. Hammonds. Neuro * CAM negative GI * GI bleed with gastric ulcer with superficial vessel cauterized and injected with epinephrine * Patient continue to be n.p.o. pending GI evaluation this morning * Increase ambulation as tolerated * H&H stable with a hemoglobin of 8.1 * CT abdomen yesterday with free air in the peritoneum * KUB this morning with no extraluminal contrast * Hemodynamically stable * Discussed with Dr. Brian * Stable for transfer to telemetry * Renal * BUN 15, creatinine 0.76 * Continue IV fluids pending advancing diet Pulmonary * Oxygenating well on room air * Patient does have history of obstructive sleep apnea with CPAP usage at bedtime * CPAP at 5 cm of water. * If patient brings in his own machine from home that may be used here. Otherwise we will use in-house CPAP machine. Cardiovascular * Hemodynamically stable * Patient states he is off blood pressure medicine since losing weight status post cardiac bypass * Heart rate in the 60s * Normal sinus rhythm on telemetry Electrolytes * Balanced * Sodium 141, potassium 3.7 Nutrition * Status post gastric bypass in the fall 2016 * Nutrition consult for evaluation of caloric needs * Patient no longer follows in [place] for gastric bypass but is seen by [facility] staff and [place] * Advance diet per GI Endocrinology * History of diabetes mellitus but now diet controlled since significant weight loss from gastric bypass * Random glucose 94 this morning ID * Patient empirically started on Zosyn with findings of free air on CT of abdomen yesterday * KUB with no evidence of perforation this morning or of bowel obstruction * WBC 10,000 * Will defer antibiotic treatment to primary team * Afebrile, hemodynamically stable. Vascular access * Peripheral IVs in place * No indication for central venous access at this time DVT prophylaxis * No chemical prophylaxis secondary to GI bleed * Out of chair and ambulate as tolerated * SCDs ordered * No asymmetrical edema on examination CCT: 0 minutes. Level 3 inpatient bill Thank you for including us in the care of this patient. I have reviewed the documentation. I agree with assessment and plan of Anmol Angel PA-C. Consults & Procedures Consultants: Gastroenterology: Dr. Hammonds Procedures: EGD 02/12/2018 with evidence of gastric ulcer with superficial vessel bleed. Data Medications: Current Inpatient Medications Medications (Trade) Dose Ordered Sig/Debbie Route Start Time Stop Time Status Last Admin Dose Admin Sodium Chloride 1,000 ml @ 100 mls/hr Q10H IV 02/12/18 05:00 03/14/18 04:59 02/13/18 03:12 100 MLS/HR Ondansetron HCl (Zofran Inj) 4 mg Q6H PRN IV 02/12/18 01:45 03/14/18 01:44 Nitroglycerin (Nitrostat Tab) 0.4 mg UD PRN SL 02/12/18 01:45 03/14/18 01:44 Ioversol (Optiray 320) 100 ml UD PRN IV 02/12/18 10:15 02/16/18 10:14 Pantoprazole Sodium 40 mg/ Syringe 10 ml @ 5 mls/min BID IV 02/12/18 21:00 03/14/18 20:59 02/13/18 01:26 5 MLS/MIN Miscellaneous Information (Consult) 1 ea UD PRN N/A 02/12/18 15:30 03/14/18 15:29 Morphine Sulfate (MoRPHine SULFATE INJ) 1 mg Q4 PRN IV 02/12/18 15:30 02/26/18 15:29 Piperacillin Sod/ Tazobactam Sod 4.5 gm/Dextrose 120 ml @ 30 mls/hr Q8H IV 02/12/18 21:00 02/22/18 20:59 02/13/18 05:42 30 MLS/HR Miscellaneous Information (Icu Protocol For Hyperglycemia) 1 ea PRN PRN N/A 02/12/18 21:30 02/14/18 21:29 Vital Signs: Date Time Temp Pulse Resp B/P (MAP) Pulse Ox O2 Delivery O2 Flow Rate FiO2 02/13/18 07:00 60 12 107/66 (80) 97 Room Air 02/13/18 05:01 51 12 111/65 (80) 97 Room Air 02/13/18 04:01 64 13 110/76 (87) 100 Room Air 02/13/18 03:01 76 22 111/65 (80) 95 Room Air 02/13/18 02:01 61 15 103/62 (76) 96 Room Air 02/13/18 01:01 66 14 94/62 (73) 95 Room Air 02/13/18 00:01 36.6 80 14 124/52 (76) 97 Room Air 02/12/18 23:01 58 14 111/67 (82) 96 Room Air 02/12/18 22:01 54 15 137/73 (94) 92 Room Air 02/12/18 21:01 71 17 129/67 (87) 98 Room Air 02/12/18 20:01 97 Room Air 02/12/18 20:01 65 16 124/78 (93) 96 Room Air 02/12/18 19:59 36.6 68 15 138/80 (99) 99 Room Air 02/12/18 13:42 51 18 116/73 (87) 96 Room Air 02/12/18 13:30 52 18 127/75 (92) 98 Room Air 02/12/18 13:15 36.7 58 16 134/87 (103) 98 Room Air 02/12/18 11:45 36.9 58 18 107/66 (80) 96 Room Air 02/12/18 11:28 36.8 61 16 124/71 (88) 100 Room Air Laboratory Results: Last 24 Hours Test 02/12/18 10:24 02/12/18 18:12 02/12/18 22:47 02/13/18 04:17 Hemoglobin 8.7 g/dL 8.9 g/dL 8.2 g/dL 8.1 g/dL Hematocrit 26.5 % 27.1 % 25.6 % 24.6 % Prothrombin Time 11.4 SECONDS Prothromb Time International Ratio 1.1 White Blood Count 17.38 K/uL 10.00 K/uL Red Blood Count 3.14 M/uL 2.85 M/uL Mean Corpuscular Volume 86.3 fL 86.3 fL Mean Corpuscular Hemoglobin 28.3 pg 28.4 pg Mean Corpuscular Hemoglobin Concent 32.8 g/dl 32.9 g/dl Platelet Count 299 K/uL 269 K/uL Mean Platelet Volume 10.4 fL 10.5 fL Neutrophils (%) (Auto) 71.4 % 65.2 % Lymphocytes (%) (Auto) 21.9 % 25.8 % Monocytes (%) (Auto) 4.9 % 5.3 % Eosinophils (%) (Auto) 1.3 % 3.3 % Basophils (%) (Auto) 0.2 % 0.2 % Neutrophils # (Auto) 12.41 K/uL 6.52 K/uL Lymphocytes # (Auto) 3.81 K/uL 2.58 K/uL Monocytes # (Auto) 0.85 K/uL 0.53 K/uL Eosinophils # (Auto) 0.22 K/uL 0.33 K/uL Basophils # (Auto) 0.04 K/uL 0.02 K/uL RDW Standard Deviation 46.2 fL 46.2 fL RDW Coefficient of Variation 14.7 % 14.5 % Immature Granulocyte % (Auto) 0.3 % 0.2 % Immature Granulocyte # (Auto) 0.05 K/uL 0.02 K/uL Sodium Level 138 mmol/L 141 mmol/L Potassium Level 4.0 mmol/L 3.7 mmol/L Chloride Level 107 mmol/L 110 mmol/L Carbon Dioxide Level 24 mmol/L 25 mmol/L Anion Gap 7.0 mmol/L 6.0 mmol/L Blood Urea Nitrogen 23 mg/dl 15 mg/dl Creatinine 0.75 mg/dl 0.76 mg/dl Est Creatinine Clear Calc Drug Dose 125.7 ml/min 124.1 ml/min Estimated GFR () 115.6 114.9 Estimated GFR (Non- 99.7 99.2 BUN/Creatinine Ratio 30.1 20.2 Random Glucose 93 mg/dl 94 mg/dl Lactic Acid Level 1.1 mmol/L Calcium Level 8.1 mg/dl 7.9 mg/dl Total Bilirubin 0.5 mg/dl Direct Bilirubin 0.2 mg/dl Aspartate Amino Transf (AST/SGOT) 13 U/L Alanine Aminotransferase (ALT/SGPT) 19 U/L Alkaline Phosphatase 79 U/L Total Protein 6.3 gm/dl Albumin 3.1 gm/dl Globulin 3.2 gm/dl Albumin/Globulin Ratio 1.0 Procalcitonin < 0.05 ng/ml Red Blood Cell Morphology Unremarkable Estimated Average Glucose 103 mg/dl Hemoglobin A1c 5.2 % Magnesium Level 2.0 mg/dl
--- NOTE | 2018-02-13 11:11 | Surgery Progress Note ---
Surgery Progress Note Date of Service Feb 13, 2018. Subjective + feeling well, + bowel movement, + flatus, No nausea, No vomiting Objective Vital Signs: Date Time Temp Pulse Resp B/P (MAP) Pulse Ox O2 Delivery O2 Flow Rate FiO2 02/13/18 10:00 59 14 109/74 (86) 99 Room Air 02/13/18 09:00 56 15 98/76 (83) 98 Room Air 02/13/18 08:00 36.7 58 13 112/73 (86) 95 Room Air 02/13/18 08:00 Room Air 02/13/18 07:00 60 12 107/66 (80) 97 Room Air 02/13/18 05:01 51 12 111/65 (80) 97 Room Air 02/13/18 04:01 64 13 110/76 (87) 100 Room Air 02/13/18 03:01 76 22 111/65 (80) 95 Room Air 02/13/18 02:01 61 15 103/62 (76) 96 Room Air 02/13/18 01:01 66 14 94/62 (73) 95 Room Air 02/13/18 00:01 36.6 80 14 124/52 (76) 97 Room Air 02/12/18 23:01 58 14 111/67 (82) 96 Room Air 02/12/18 22:01 54 15 137/73 (94) 92 Room Air 02/12/18 21:01 71 17 129/67 (87) 98 Room Air 02/12/18 20:01 97 Room Air 02/12/18 20:01 65 16 124/78 (93) 96 Room Air 02/12/18 19:59 36.6 68 15 138/80 (99) 99 Room Air 02/12/18 13:42 51 18 116/73 (87) 96 Room Air 02/12/18 13:30 52 18 127/75 (92) 98 Room Air 02/12/18 13:15 36.7 58 16 134/87 (103) 98 Room Air 02/12/18 11:45 36.9 58 18 107/66 (80) 96 Room Air 02/12/18 11:28 36.8 61 16 124/71 (88) 100 Room Air Abdomen: non tender, non distended, soft Laboratory Results: Results Past 24 Hours Test 02/12/18 18:12 02/12/18 22:47 02/13/18 04:17 Range/Units White Blood Count 17.38 10.00 4.8-10.8 K/uL Red Blood Count 3.14 2.85 4.7-6.1 M/uL Hemoglobin 8.9 8.2 8.1 14.0-18.0 g/dL Hematocrit 27.1 25.6 24.6 42-52 % Mean Corpuscular Volume 86.3 86.3 80-100 fL Mean Corpuscular Hemoglobin 28.3 28.4 25-34 pg Mean Corpuscular Hemoglobin Concent 32.8 32.9 32-36 g/dl Platelet Count 299 269 130-400 K/uL Mean Platelet Volume 10.4 10.5 7.4-10.4 fL Neutrophils (%) (Auto) 71.4 65.2 % Lymphocytes (%) (Auto) 21.9 25.8 % Monocytes (%) (Auto) 4.9 5.3 % Eosinophils (%) (Auto) 1.3 3.3 % Basophils (%) (Auto) 0.2 0.2 % Neutrophils # (Auto) 12.41 6.52 1.4-6.5 K/uL Lymphocytes # (Auto) 3.81 2.58 1.2-3.4 K/uL Monocytes # (Auto) 0.85 0.53 0.11-0.59 K/uL Eosinophils # (Auto) 0.22 0.33 0-0.5 K/uL Basophils # (Auto) 0.04 0.02 0-0.2 K/uL RDW Standard Deviation 46.2 46.2 36.4-46.3 fL RDW Coefficient of Variation 14.7 14.5 11.5-14.5 % Immature Granulocyte % (Auto) 0.3 0.2 % Immature Granulocyte # (Auto) 0.05 0.02 0.00-0.02 K/uL Sodium Level 138 141 136-145 mmol/L Potassium Level 4.0 3.7 3.5-5.1 mmol/L Chloride Level 107 110 98-107 mmol/L Carbon Dioxide Level 24 25 21-32 mmol/L Anion Gap 7.0 6.0 3-11 mmol/L Blood Urea Nitrogen 23 15 7-18 mg/dl Creatinine 0.75 0.76 0.60-1.40 mg/dl Est Creatinine Clear Calc Drug Dose 125.7 124.1 ml/min Estimated GFR () 115.6 114.9 Estimated GFR (Non- 99.7 99.2 BUN/Creatinine Ratio 30.1 20.2 10-20 Random Glucose 93 94 70-99 mg/dl Lactic Acid Level 1.1 0.4-2.0 mmol/L Calcium Level 8.1 7.9 8.5-10.1 mg/dl Total Bilirubin 0.5 0.2-1 mg/dl Direct Bilirubin 0.2 0-0.2 mg/dl Aspartate Amino Transf (AST/SGOT) 13 15-37 U/L Alanine Aminotransferase (ALT/SGPT) 19 12-78 U/L Alkaline Phosphatase 79 45-117 U/L Total Protein 6.3 6.4-8.2 gm/dl Albumin 3.1 3.4-5.0 gm/dl Globulin 3.2 2.5-4.0 gm/dl Albumin/Globulin Ratio 1.0 0.9-2 Procalcitonin < 0.05 0-0.5 ng/ml Red Blood Cell Morphology Unremarkable Estimated Average Glucose 103 mg/dl Hemoglobin A1c 5.2 4.5-5.6 % Magnesium Level 2.0 1.8-2.4 mg/dl Assessment & Plan S/p EGD with endoscopic therapy for anastomotic ulcer with bleeding Free air on CT scan CT with oral contrast subsequently showed no leak Continue NPO Continue anitulcer regimen
--- NOTE | 2018-02-13 13:40 | GASTROENTEROLOGY PROGRESS NOTE ---
DATE: 02/13/2018 Gastroenterology progress note and cross coverage for [facility]. AGE: 62 SEX: Male. RACE: . SUBJECTIVE: I had the pleasure of seeing Gucci Christensen at his bedside today. He is completely asymptomatic from a GI standpoint. He denies any hematemesis, melena, hematochezia, fevers, chills, nausea, vomiting or abdominal pain. Nursing staff reports he is doing well. He has remained n.p.o. and he has no complaints. PHYSICAL EXAMINATION: VITAL SIGNS: Temp 36.7, pulse 72, respirations 16, blood pressure 111/68, pulse ox 100% on room air. GENERAL: He is awake, cooperative, chronic ill appearing, in no acute distress. ABDOMEN: Soft, nontender, nondistended. LABORATORY STUDIES: From this morning include a white blood cell count of 10.0, hemoglobin 8.1, hematocrit 24.6 and a platelet count of 269. A KUB x-ray from this morning showed contrast within a nondilated colon. No extraluminal contrast was identified. IMPRESSION: A 62-year-old male with a gastrointestinal bleed status post EGD with epi and heater probe therapy to an anastomotic ulcerative site who developed minimal free air post-procedure which subsequently resolved. PLAN: At the present time, I would recommend continuing the patient on his current therapy including Protonix 40 mg IV b.i.d. He remains on Zosyn therapy as per the primary team. I will follow his clinical course and make further recommendations as needed. Once again, thanks for allowing me to participate in the care of this patient. If you have any further questions, do not hesitate in contacting me.
[2018-02-13 14:32] LABS: HEMATOCRIT 27.5 % (42-52)
--- NOTE | 2018-02-13 18:05 | Progress Note ---
Internal Med Progress Note Date of Service: Feb 13, 2018. Provider Documentation: SUBJECTIVE: Patient found sitting on chair, remained hemodynamically stable over Had multiple bowel movement with melanotic stool and blood clots Feels very tired and wiped out, dizzy spell when standing up No abdominal pain or nausea, no hematemesis Remains afebrile OBJECTIVE: Vital Signs-as noted below Exam: General- very pale appearing, no sign of distress Eyes-sclera nonicteric, pupils bilateral equal reactive to light extraocular muscles intact ENT-moist oral mucosa Neck-supple, no thyromegaly, trachea midline Lungs-clear to auscultate, no wheeze or rales Heart-regular S1 and S2, no murmur gallop, no lower extremity edema, no carotid bruit, no JVD Abdomen-soft, -no tenderness palpated (had moderate tenderness on left lower quadrant yesterday after the EGD), bowel sounds diminished Extremities-no rash or deformity, Neuro- no focal neurological deficit Psych-alert awake oriented 3, normal mood and affect Lymph nodes-no lymphadenopathy Lab data as noted below. ASSESSMENT & PLAN: GI BLEED /MELANOTIC STOOL : Patient had EGD by Dr. Hammonds, yesterday 02/12/2018 -Showed a nonbleeding gastric ulcer with visible vessel. Was injected with epinephrine for hemostasis, treated with bipolar cautery -Gastric bypass with a normal sized pouch and intact staple line. Gastrojejunal anastomosis characterized by ulceration. Gastric remnant biopsied. -Normal examined jejunum Continue to have melanotic stool, with acute drop in H&H 8.7-> 8.1 associated with symptom of dizziness spell and lightheadedness ordered for 1 unit of PRBC transfused Post transfusion hemoglobin improved to 9 Keep n.p.o./IV Protonix drip PNEUMOPERITONEUM/PERFORATED VISCUS CT abdomen pelvis with contrast-which is done after the EGD procedure: 1. Free intraperitoneal air. In the absence of recent surgery this may indicate a bowel perforation. 2. No evidence of bowel obstruction. 3. No evidence of acute diverticulitis. No evidence of acute appendicitis. 4. Right-sided nephrolithiasis 5. Bilateral renal cysts. Indeterminate lower pole left renal lesions A dedicated renal CT or MRI is recommended in follow-up. Repeat CT abdomen pelvis with p.o. contrast shows no extravasation of fluids in the peritoneal cavity Patient is kept n.p.o. continue IV fluids Appreciate input from surgery and GI INCIDENTAL FINDING OF LEFT RENAL LESIONS CT abdomen pelvis findings as above: 1 cm exophytic hyperdense nodule/15 mm hypodense lesion on left lower pole of kidney Appreciate input from urology Possible complex cyst Recommends outpatient dedicated renal MRI in 6 months RIGHT-SIDED KIDNEY STONE Incidental finding in CT abdomen pelvis Patient denies of any hematuria/flank pain Urology appreciate Patient follow-up with neurology and the infusion to assess renal stone ACUTE BLOOD LOSS ANEMIA SECONDARY TO GI BLEED Hemoglobin dropped from 11.2-8.7-- > 8.1 continues to have melanotic stool Feels very dizzy and lightheaded 1 unit of PRBC ordered to be transfused post transfusion Hb improved to 9.1 /pt reports of clinical improvement /feels less fatigued and SOB Monitor H and H HYPERLIPIDEMIA : Hold statin in the setting of active GI bleed/bowel perforation MORBID OBESITY /STATUS POST GASTRIC BYPASS SURGERY Status post gastric bypass surgery in May 2017, at [facility] Lost approximately 70 pounds since follows with GI and [facility] Presents with possible anastomotic site bleed/possible perforation Continue n.p.o., IV fluids HISTORY OF DIABETES, Antidiabetic meds discontinued significant weight loss due to gastric bypass surgery Fasting blood sugar:103 hemoglobin A1c 5.2 Does not need any antidiabetic medication HYPOTENSION Possibly secondary to GI bleed/volume loss On presentation blood pressure was low at 80s/50s heart rate 95 sinus Blood pressure improved after IV fluids bolus Continue with normal saline at 100 mL/h Monitor H&H Transfuse PRBC as indicated CODE STATUS: Full code DVT PROPHYLAXIS Low risk SCD and teds Pharmacological anticoagulation avoided in the setting of active GI bleed Patient is encouraged to ambulate when clinically stable DISPOSITION Stable to be transferred to telemetry today Expected to be discharged home when medically stable Medicine follow-up with Dr. Gianna Olmos at [facility] Patient will need close follow-up with GI team as outpatient Vital Signs: Date Time Temp Pulse Resp B/P (MAP) Pulse Ox O2 Delivery O2 Flow Rate FiO2 02/14/18 08:00 Room Air 02/14/18 08:00 36.7 79 21 117/76 (90) 97 Room Air 02/14/18 04:01 53 14 122/72 (89) 98 02/14/18 00:01 56 12 112/67 (82) 97 02/13/18 22:10 62 99 02/13/18 20:16 98 Room Air 02/13/18 20:01 36.7 59 15 129/81 (97) 99 Room Air 02/13/18 16:00 36.7 61 14 124/79 (94) 98 Room Air 02/13/18 13:37 36.7 58 12 107/70 99 02/13/18 13:18 36.7 61 17 107/70 96 02/13/18 13:00 36.7 56 16 107/70 (82) 99 Room Air 02/13/18 12:45 36.7 57 20 118/67 99 02/13/18 12:45 36.7 54 17 118/67 99 02/13/18 12:30 36.7 02/13/18 12:22 72 16 111/68 100 02/13/18 12:00 36.7 57 13 118/67 (84) 100 Room Air 02/13/18 11:00 54 13 108/71 (83) 100 Room Air Lab Results: Results Past 24 Hours Test 02/13/18 14:14 02/14/18 04:15 Range/Units Hemoglobin 9.0 8.1 14.0-18.0 g/dL Hematocrit 27.5 24.0 42-52 % White Blood Count 8.49 4.8-10.8 K/uL Red Blood Count 2.74 4.7-6.1 M/uL Mean Corpuscular Volume 87.6 80-100 fL Mean Corpuscular Hemoglobin 29.6 25-34 pg Mean Corpuscular Hemoglobin Concent 33.8 32-36 g/dl Platelet Count 216 130-400 K/uL Mean Platelet Volume 9.6 7.4-10.4 fL Neutrophils (%) (Auto) 56.9 % Lymphocytes (%) (Auto) 31.6 % Monocytes (%) (Auto) 6.8 % Eosinophils (%) (Auto) 4.2 % Basophils (%) (Auto) 0.4 % Neutrophils # (Auto) 4.83 1.4-6.5 K/uL Lymphocytes # (Auto) 2.68 1.2-3.4 K/uL Monocytes # (Auto) 0.58 0.11-0.59 K/uL Eosinophils # (Auto) 0.36 0-0.5 K/uL Basophils # (Auto) 0.03 0-0.2 K/uL RDW Standard Deviation 45.7 36.4-46.3 fL RDW Coefficient of Variation 14.4 11.5-14.5 % Immature Granulocyte % (Auto) 0.1 % Immature Granulocyte # (Auto) 0.01 0.00-0.02 K/uL Anisocytosis PRESENT Sodium Level 141 136-145 mmol/L Potassium Level 3.7 3.5-5.1 mmol/L Chloride Level 111 98-107 mmol/L Carbon Dioxide Level 25 21-32 mmol/L Anion Gap 5.0 3-11 mmol/L Blood Urea Nitrogen 12 7-18 mg/dl Creatinine 0.78 0.60-1.40 mg/dl Est Creatinine Clear Calc Drug Dose 121.0 ml/min Estimated GFR () 113.7 Estimated GFR (Non- 98.1 BUN/Creatinine Ratio 15.2 10-20 Random Glucose 80 70-99 mg/dl Calcium Level 7.8 8.5-10.1 mg/dl Magnesium Level 2.0 1.8-2.4 mg/dl
[2018-02-14] VITALS (11 sets, daily range): BP systolic 112–150; BP diastolic 67–89; PULSE 47–79; TEMP 36.7–36.9; O2SAT 96–99
[2018-02-14 04:23] LABS: BASO % 0.4 %; BASO ABS # 0.03 K/uL (0-0.2); EOS % 4.2 %; EOS ABS # 0.36 K/uL (0-0.5); HEMOGLOBIN 8.1 g/dL (14.0-18.0); IG# 0.01 K/uL (0.00-0.02); LYMPH % 31.6 %; LYMPH ABS # 2.68 K/uL (1.2-3.4); MEAN CELL VOLUME 87.6 fL (80-100); MEAN CORPUSCULAR HEMOGLOBIN 29.6 pg (25-34); MEAN CORPUSCULAR HGB CONC 33.8 g/dl (32-36); MEAN PLATELET VOLUME 9.6 fL (7.4-10.4); MONO % 6.8 %; MONO ABS # 0.58 K/uL (0.11-0.59); NEUT % 56.9 %; NEUT ABS # 4.83 K/uL (1.4-6.5); PLATELET COUNT 216 K/uL (130-400); RED CELL DISTRIBUTION WIDTH CV 14.4 % (11.5-14.5); RED CELL DISTRIBUTION WIDTH SD 45.7 fL (36.4-46.3); WHITE BLOOD COUNT 8.49 K/uL (4.8-10.8)
[2018-02-14 04:41] LABS: CALCIUM 7.8 mg/dl (8.5-10.1); CREATININE 0.78 mg/dl (0.60-1.40); POTASSIUM 3.7 mmol/L (3.5-5.1)
[2018-02-14] MEDS: PIPERACILL/TAZOBAC IV 4.5 GM in D5W 100 ML IV SCH ×3 (05:14→21:17)
[2018-02-14] MEDS: PANTOprazole INJ 40 MG in SYRINGE 0 ML IV SCH ×2 (09:23→19:54)
[2018-02-14] MEDS: SODIUM CHLORIDE 0.9% 1000ML 1,000 ML IV SCH ×3 (09:31→23:13)
--- NOTE | 2018-02-14 11:19 | Surgery Progress Note ---
Surgery Progress Note Date of Service Feb 14, 2018. Subjective + feeling well, + bowel movement, No complaints, No nausea, No vomiting Denies abdominal pain Objective Vital Signs: Date Time Temp Pulse Resp B/P (MAP) Pulse Ox O2 Delivery O2 Flow Rate FiO2 02/14/18 08:00 Room Air 02/14/18 08:00 36.7 79 21 117/76 (90) 97 Room Air 02/14/18 04:01 53 14 122/72 (89) 98 02/14/18 00:01 56 12 112/67 (82) 97 02/13/18 22:10 62 99 02/13/18 20:16 98 Room Air 02/13/18 20:01 36.7 59 15 129/81 (97) 99 Room Air 02/13/18 16:00 36.7 61 14 124/79 (94) 98 Room Air 02/13/18 13:37 36.7 58 12 107/70 99 02/13/18 13:18 36.7 61 17 107/70 96 02/13/18 13:00 36.7 56 16 107/70 (82) 99 Room Air 02/13/18 12:45 36.7 57 20 118/67 99 02/13/18 12:45 36.7 54 17 118/67 99 02/13/18 12:30 36.7 02/13/18 12:22 72 16 111/68 100 02/13/18 12:00 36.7 57 13 118/67 (84) 100 Room Air Abdomen: normal bowel sounds, non tender, non distended, soft Laboratory Results: Results Past 24 Hours Test 02/13/18 14:14 02/14/18 04:15 Range/Units Hemoglobin 9.0 8.1 14.0-18.0 g/dL Hematocrit 27.5 24.0 42-52 % White Blood Count 8.49 4.8-10.8 K/uL Red Blood Count 2.74 4.7-6.1 M/uL Mean Corpuscular Volume 87.6 80-100 fL Mean Corpuscular Hemoglobin 29.6 25-34 pg Mean Corpuscular Hemoglobin Concent 33.8 32-36 g/dl Platelet Count 216 130-400 K/uL Mean Platelet Volume 9.6 7.4-10.4 fL Neutrophils (%) (Auto) 56.9 % Lymphocytes (%) (Auto) 31.6 % Monocytes (%) (Auto) 6.8 % Eosinophils (%) (Auto) 4.2 % Basophils (%) (Auto) 0.4 % Neutrophils # (Auto) 4.83 1.4-6.5 K/uL Lymphocytes # (Auto) 2.68 1.2-3.4 K/uL Monocytes # (Auto) 0.58 0.11-0.59 K/uL Eosinophils # (Auto) 0.36 0-0.5 K/uL Basophils # (Auto) 0.03 0-0.2 K/uL RDW Standard Deviation 45.7 36.4-46.3 fL RDW Coefficient of Variation 14.4 11.5-14.5 % Immature Granulocyte % (Auto) 0.1 % Immature Granulocyte # (Auto) 0.01 0.00-0.02 K/uL Anisocytosis PRESENT Sodium Level 141 136-145 mmol/L Potassium Level 3.7 3.5-5.1 mmol/L Chloride Level 111 98-107 mmol/L Carbon Dioxide Level 25 21-32 mmol/L Anion Gap 5.0 3-11 mmol/L Blood Urea Nitrogen 12 7-18 mg/dl Creatinine 0.78 0.60-1.40 mg/dl Est Creatinine Clear Calc Drug Dose 121.0 ml/min Estimated GFR () 113.7 Estimated GFR (Non- 98.1 BUN/Creatinine Ratio 15.2 10-20 Random Glucose 80 70-99 mg/dl Calcium Level 7.8 8.5-10.1 mg/dl Magnesium Level 2.0 1.8-2.4 mg/dl Assessment & Plan S/p EGD with endoscopic therapy for anastomotic ulcer with bleeding Free air on CT scan CT with oral contrast subsequently showed no leak Can begin clear liquids today Continue anitulcer regimen
--- NOTE | 2018-02-14 12:07 | Progress Note ---
Internal Med Progress Note Date of Service: Feb 14, 2018. Provider Documentation: SUBJECTIVE: Feels much better today No blood in stool overnight or this morning Denies of feeling dizzy spell lightheadedness No nausea or abdominal pain Evaluated by surgery this morning Diet advance to clears OBJECTIVE: Vital Signs-as noted below Exam: General- very pale appearing, no sign of distress Eyes-sclera nonicteric, pupils bilateral equal reactive to light extraocular muscles intact ENT-moist oral mucosa Neck-supple, no thyromegaly, trachea midline Lungs-clear to auscultate, no wheeze or rales Heart-regular S1 and S2, no murmur gallop, no lower extremity edema, no carotid bruit, no JVD Abdomen-soft, -no tenderness palpated (had moderate tenderness on left lower quadrant yesterday after the EGD), bowel sounds diminished Extremities-no rash or deformity, Neuro- no focal neurological deficit Psych-alert awake oriented 3, normal mood and affect Lymph nodes-no lymphadenopathy Lab data as noted below. ASSESSMENT & PLAN: GI BLEED /MELANOTIC STOOL : Patient had EGD by Dr. Hammonds, yesterday 02/12/2018 -Showed a nonbleeding gastric ulcer with visible vessel. Was injected with epinephrine for hemostasis, treated with bipolar cautery -Gastric bypass with a normal sized pouch and intact staple line. Gastrojejunal anastomosis characterized by ulceration. Gastric remnant biopsied. -Normal examined jejunum PNEUMOPERITONEUM/PERFORATED VISCUS CT abdomen pelvis with contrast-which is done after the EGD procedure: 1. Free intraperitoneal air. In the absence of recent surgery this may indicate a bowel perforation. 2. No evidence of bowel obstruction. 3. No evidence of acute diverticulitis. No evidence of acute appendicitis. 4. Right-sided nephrolithiasis 5. Bilateral renal cysts. Indeterminate lower pole left renal lesions A dedicated renal CT or MRI is recommended in follow-up. Repeat CT abdomen pelvis with p.o. contrast shows no extravasation of fluids in the peritoneal cavity Appreciate input from surgery and GI Diet advanced to clears INCIDENTAL FINDING OF LEFT RENAL LESIONS CT abdomen pelvis findings as above: 1 cm exophytic hyperdense nodule/15 mm hypodense lesion on left lower pole of kidney Appreciate input from urology Possible complex cyst Recommends outpatient dedicated renal MRI in 6 months RIGHT-SIDED KIDNEY STONE Incidental finding in CT abdomen pelvis Patient denies of any hematuria/flank pain Urology appreciate Patient follow-up with neurology and the infusion to assess renal stone ACUTE BLOOD LOSS ANEMIA SECONDARY TO GI BLEED Hemoglobin dropped from 11.2-8.7-- > 8.1 Given 1 unit of PRBC transfusion yesterday No further episode of melanotic stool Hemoglobin transiently improved to 9 after 1 unit transfusion, repeat H&H dropped to 8.1 Ordered for 1 unit of PRBC to be transfused Follow H&H HYPERLIPIDEMIA : Hold statin in the setting of active GI bleed/bowel perforation MORBID OBESITY /STATUS POST GASTRIC BYPASS SURGERY Status post gastric bypass surgery in May 2017, at [facility] [place] Lost approximately 70 pounds since follows with GI and operator automated process at [facility] HISTORY OF DIABETES, Antidiabetic meds discontinued significant weight loss due to gastric bypass surgery Fasting blood sugar:103 hemoglobin A1c 5.2 Does not need any antidiabetic medication HYPOTENSION Resolved BP remained stable Monitor H&H Transfuse PRBC as indicated CODE STATUS: Full code DVT PROPHYLAXIS Low risk SCD and teds Pharmacological anticoagulation avoided in the setting of active GI bleed Patient is encouraged to ambulate when clinically stable DISPOSITION Expected to be discharged home when medically stable Medicine follow-up with Dr. Gianna Olmos at [facility] Patient will need close follow-up with GI team as outpatient Vital Signs: Date Time Temp Pulse Resp B/P (MAP) Pulse Ox O2 Delivery O2 Flow Rate FiO2 02/15/18 03:05 36.7 55 20 134/81 (98) 98 CPAP 02/14/18 23:59 Room Air 02/14/18 23:16 36.7 47 19 137/80 (99) 96 Room Air 02/14/18 22:26 57 98 02/14/18 20:00 Room Air 02/14/18 19:50 36.9 49 16 150/89 (109) 96 Room Air 02/14/18 15:28 36.7 56 23 144/86 99 02/14/18 13:55 36.8 72 13 127/72 98 02/14/18 13:20 36.8 64 20 137/80 98 02/14/18 13:06 59 17 126/88 97 02/14/18 12:00 36.8 52 15 126/88 (101) 99 Room Air 02/14/18 08:00 Room Air 02/14/18 08:00 36.7 79 21 117/76 (90) 97 Room Air Lab Results: Results Past 24 Hours Test 02/15/18 05:36 Range/Units White Blood Count 8.86 4.8-10.8 K/uL Red Blood Count 3.16 4.7-6.1 M/uL Hemoglobin 9.1 14.0-18.0 g/dL Hematocrit 27.7 42-52 % Mean Corpuscular Volume 87.7 80-100 fL Mean Corpuscular Hemoglobin 28.8 25-34 pg Mean Corpuscular Hemoglobin Concent 32.9 32-36 g/dl Platelet Count 250 130-400 K/uL Mean Platelet Volume 10.4 7.4-10.4 fL Neutrophils (%) (Auto) 55.5 % Lymphocytes (%) (Auto) 31.2 % Monocytes (%) (Auto) 8.9 % Eosinophils (%) (Auto) 4.1 % Basophils (%) (Auto) 0.3 % Neutrophils # (Auto) 4.92 1.4-6.5 K/uL Lymphocytes # (Auto) 2.76 1.2-3.4 K/uL Monocytes # (Auto) 0.79 0.11-0.59 K/uL Eosinophils # (Auto) 0.36 0-0.5 K/uL Basophils # (Auto) 0.03 0-0.2 K/uL RDW Standard Deviation 45.2 36.4-46.3 fL RDW Coefficient of Variation 14.2 11.5-14.5 % Immature Granulocyte % (Auto) 0.0 % Immature Granulocyte # (Auto) 0.00 0.00-0.02 K/uL Sodium Level 141 136-145 mmol/L Potassium Level 3.6 3.5-5.1 mmol/L Chloride Level 109 98-107 mmol/L Carbon Dioxide Level 24 21-32 mmol/L Anion Gap 8.0 3-11 mmol/L Blood Urea Nitrogen 9 7-18 mg/dl Creatinine 0.84 0.60-1.40 mg/dl Est Creatinine Clear Calc Drug Dose 112.4 ml/min Estimated GFR () 110.3 Estimated GFR (Non- 95.2 BUN/Creatinine Ratio 10.2 10-20 Random Glucose 80 70-99 mg/dl Calcium Level 8.1 8.5-10.1 mg/dl Magnesium Level 2.0 1.8-2.4 mg/dl
[2018-02-14] MEDS: SUCRALFATE 1 GM/10 ML UDC PO SCH ×3 (13:04→19:54)
--- NOTE | 2018-02-14 14:33 | GASTROENTEROLOGY PROGRESS NOTE ---
DATE: 02/14/2018 Gastroenterology progress note and cross coverage for [facility]. PATIENT'S AGE: 62. SEX: Male. RACE: . SUBJECTIVE: I had the pleasure of seeing Gucci Christensen at his bedside today. He is without complaints. He denies any fevers, chills, nausea, vomiting, hematemesis, melena or hematochezia. He states he did have a brown bowel movement today and denies any further complaints. PHYSICAL EXAMINATION: VITAL SIGNS: Temp 36.7, pulse 79, respirations 21, blood pressure 117/76, pulse ox 97% on room air. GENERAL: Awake, cooperative, no acute distress. ABDOMEN: Soft, nontender, nondistended. Positive bowel sounds. LABORATORY STUDIES: From today include an H and H of 8.1 and 24.0. His BUN and creatinine are 12 and 0.78. IMPRESSION: A 62-year-old male status post EGD with epinephrine and heater probe therapy to an anastomotic ulcer site. He developed minimal free air post-procedure which has subsequently resolved. PLAN: At the present time, I would continue him on Protonix 40 mg IV b.i.d. He will remain on Zosyn therapy as per the primary team. He is doing quite well and the [facility] will resume his care tomorrow. Once again, thanks for allowing me to participate in the care of this patient. If you have any further questions, please do not hesitate in contacting me.
[2018-02-15] MEDS: SODIUM CHLORIDE 0.9% 1000ML 1,000 ML IV SCH (02:39)
[2018-02-15] MEDS ORDERED: TRAMADOL HCL 50 MG TAB PO PRN ×2 (02:45→07:45)
[2018-02-15 03:05] VITALS: BP 134/81; PULSE 55; TEMP 36.7; O2SAT 98
[2018-02-15] MEDS: PIPERACILL/TAZOBAC IV 4.5 GM in D5W 100 ML IV SCH ×2 (04:52→13:22)
[2018-02-15 06:04] LABS: BASO % 0.3 %; BASO ABS # 0.03 K/uL (0-0.2); EOS % 4.1 %; EOS ABS # 0.36 K/uL (0-0.5); HEMATOCRIT 27.7 % (42-52); HEMOGLOBIN 9.1 g/dL (14.0-18.0); LYMPH % 31.2 %; LYMPH ABS # 2.76 K/uL (1.2-3.4); MEAN CELL VOLUME 87.7 fL (80-100); MEAN CORPUSCULAR HEMOGLOBIN 28.8 pg (25-34); MEAN CORPUSCULAR HGB CONC 32.9 g/dl (32-36); MEAN PLATELET VOLUME 10.4 fL (7.4-10.4); MONO % 8.9 %; MONO ABS # 0.79 K/uL (0.11-0.59); NEUT % 55.5 %; NEUT ABS # 4.92 K/uL (1.4-6.5); PLATELET COUNT 250 K/uL (130-400); RED CELL DISTRIBUTION WIDTH CV 14.2 % (11.5-14.5); RED CELL DISTRIBUTION WIDTH SD 45.2 fL (36.4-46.3); WHITE BLOOD COUNT 8.86 K/uL (4.8-10.8)
[2018-02-15 06:25] LABS: CALCIUM 8.1 mg/dl (8.5-10.1); CREATININE 0.84 mg/dl (0.60-1.40); POTASSIUM 3.6 mmol/L (3.5-5.1)
--- NOTE | 2018-02-15 06:30 | Progress Note ---
Post ICU Progress Note Date & Time Feb 15, 2018 at 06:24 Vital Signs Vital Signs Past 12 Hours Date Time Temp Pulse Resp B/P (MAP) Pulse Ox O2 Delivery O2 Flow Rate FiO2 02/15/18 03:05 36.7 55 20 134/81 (98) 98 CPAP 02/14/18 23:59 Room Air 02/14/18 23:16 36.7 47 19 137/80 (99) 96 Room Air 02/14/18 22:26 57 98 02/14/18 20:00 Room Air 02/14/18 19:50 36.9 49 16 150/89 (109) 96 Room Air Notes Mental Status: alert / awake Nausea / Vomiting: adequately controlled Pain: adequately controlled Airway Patency, RR, SpO2: stable & adequate BP & HR: stable & adequate Patient is a 62-year-old male who was initially admitted to the ICU status post upper endoscopy with cautery procedure performed for upper GI bleed. Free air was noted after procedure on CT scan. He was monitored in the ICU for hemodynamic instability concerns immediately post intervention. The patient remained overnight in the ICU without any complication. The patient has received 2 units of PRBCs throughout his stay. Overall, the patient has shown great improvement. On evaluation this morning, the patient is awake, alert, and oriented. He is resting comfortably in bed. He reports that his stools have changed to a brown color at this point. He is now complaining of pain in his legs which is back to his baseline. Otherwise, the patient reports feeling much better at this time. Consider outpatient follow up in 1 to 2 weeks with: GI, PCP Repeat imaging needed: Per admitting services. Follow up cultures: None Reviewed progress notes, labs, and inpatient medication list Continue current management Additional recommendations: None at this time. Thank you for allowing us to participate in the care of this patient. At this time, Critical Care Services will sign off at this time. Please feel free to reconsult as needed. Consults & Procedures Consultants: Gastroenterology: Dr. Hammonds Procedures: EGD 02/12/2018 with evidence of gastric ulcer with superficial vessel bleed.
[2018-02-15] MEDS: SUCRALFATE 1 GM/10 ML UDC PO SCH ×3 (07:23→16:24)
[2018-02-15 07:43] VITALS: BP 127/83; PULSE 59; TEMP 36.6; O2SAT 96
[2018-02-15] MEDS: PANTOprazole INJ 40 MG in SYRINGE 0 ML IV SCH (08:33)
[2018-02-15 09:05] VITALS: BP 148/88; PULSE 61; O2SAT 97
--- NOTE | 2018-02-15 10:32 | Gastroenterology Progress Note ---
Progress Note Date of Service: Feb 15, 2018 Subjective Pt evaluation today including: conversation w/ patient, physical exam, chart review, lab review, review of studies, review of inpatient medication list Mr. Christensen is a 62 yr old male who is S/P Gastric Bypass who experienced bright red blood and melena rectally on 02/11 and underwent EGD on 02/[address] Hammonds with a non bleeding gastrojejunal anastomotic ulcer with a visible vessel injected and cauterized. 3 days of protonix drip completed, now DE'ed. Hb on arrival 8.2, received 2 units of RBCs, now 9.1. This morning two brown BMs and no abdominal pain. Tolerated a full liquid breakfast. Review of Systems Constitutional: No fever Respiratory: No cough Abdomen: + GI bleeding (resolved), No pain, No nausea, No vomiting, No diarrhea , No constipation Male : No dysuria Neuro: No memory loss Psych: No depression symptoms Heme: No abnormal bleeding/bruising Endo: No fatigue Skin: No rash Medications Current Inpatient Medications Medications (Trade) Dose Ordered Sig/Debbie Route Start Time Stop Time Status Last Admin Dose Admin Ondansetron HCl (Zofran Inj) 4 mg Q6H PRN IV 02/12/18 01:45 03/14/18 01:44 Nitroglycerin (Nitrostat Tab) 0.4 mg UD PRN SL 02/12/18 01:45 03/14/18 01:44 Ioversol (Optiray 320) 100 ml UD PRN IV 02/12/18 10:15 02/16/18 10:14 Pantoprazole Sodium 40 mg/ Syringe 10 ml @ 5 mls/min BID IV 02/12/18 21:00 03/14/18 20:59 02/15/18 08:33 5 MLS/MIN Miscellaneous Information (Consult) 1 ea UD PRN N/A 02/12/18 15:30 03/14/18 15:29 Morphine Sulfate (MoRPHine SULFATE INJ) 1 mg Q4 PRN IV 02/12/18 15:30 02/26/18 15:29 Piperacillin Sod/ Tazobactam Sod 4.5 gm/Dextrose 120 ml @ 30 mls/hr Q8H IV 02/12/18 21:00 02/22/18 20:59 02/15/18 04:52 30 MLS/HR Sucralfate (Carafate Susp) 1 gm QID PO 02/14/18 13:00 03/16/18 12:59 02/15/18 07:23 1 GM Tramadol HCl (Ultram Tab) 50 mg Q6 PRN PO 02/15/18 07:45 03/17/18 07:44 02/15/18 09:36 50 MG Objective Vital Signs Date Time Temp Pulse Resp B/P (MAP) Pulse Ox O2 Delivery O2 Flow Rate FiO2 02/15/18 08:00 Room Air 02/15/18 07:43 36.6 59 20 127/83 (98) 96 Room Air 02/15/18 03:05 36.7 55 20 134/81 (98) 98 CPAP 02/14/18 23:59 Room Air 02/14/18 23:16 36.7 47 19 137/80 (99) 96 Room Air 02/14/18 22:26 57 98 02/14/18 20:00 Room Air 02/14/18 19:50 36.9 49 16 150/89 (109) 96 Room Air 02/14/18 15:28 36.7 56 23 144/86 99 02/14/18 13:55 36.8 72 13 127/72 98 02/14/18 13:20 36.8 64 20 137/80 98 02/14/18 13:06 59 17 126/88 97 02/14/18 12:00 36.8 52 15 126/88 (101) 99 Room Air Physical Exam General Appearance: no apparent distress ENT: pharynx normal Neck: thyroid normal, no JVD Respiratory/Chest: lungs clear Cardiovascular: regular rate, rhythm, no JVD, no murmur Abdomen: non tender, soft Extremities: non-tender Neurologic/Psych: alert, normal mood/affect, oriented x 3 Skin: no jaundice Laboratory Results Last 24 Hours Test 02/15/18 05:36 White Blood Count 8.86 K/uL Red Blood Count 3.16 M/uL Hemoglobin 9.1 g/dL Hematocrit 27.7 % Mean Corpuscular Volume 87.7 fL Mean Corpuscular Hemoglobin 28.8 pg Mean Corpuscular Hemoglobin Concent 32.9 g/dl Platelet Count 250 K/uL Mean Platelet Volume 10.4 fL Neutrophils (%) (Auto) 55.5 % Lymphocytes (%) (Auto) 31.2 % Monocytes (%) (Auto) 8.9 % Eosinophils (%) (Auto) 4.1 % Basophils (%) (Auto) 0.3 % Neutrophils # (Auto) 4.92 K/uL Lymphocytes # (Auto) 2.76 K/uL Monocytes # (Auto) 0.79 K/uL Eosinophils # (Auto) 0.36 K/uL Basophils # (Auto) 0.03 K/uL RDW Standard Deviation 45.2 fL RDW Coefficient of Variation 14.2 % Immature Granulocyte % (Auto) 0.0 % Immature Granulocyte # (Auto) 0.00 K/uL Sodium Level 141 mmol/L Potassium Level 3.6 mmol/L Chloride Level 109 mmol/L Carbon Dioxide Level 24 mmol/L Anion Gap 8.0 mmol/L Blood Urea Nitrogen 9 mg/dl Creatinine 0.84 mg/dl Est Creatinine Clear Calc Drug Dose 112.4 ml/min Estimated GFR () 110.3 Estimated GFR (Non- 95.2 BUN/Creatinine Ratio 10.2 Random Glucose 80 mg/dl Calcium Level 8.1 mg/dl Magnesium Level 2.0 mg/dl Assessment and Plan Mr. Christensen is a 62 yr old male who experienced an UGI bleed from an anastamotic ulcer. He is stable post EGD with injection and cauterization of the ulcer. Plan: 1. BID PPI. 2. Regular consistency diet. 3. Needs f/u EGD in one month. Our office will contact him to arrange. 4. No GI contraindication to DC. I have personally seen and examined the patient with BHARAT Dowd. Her note reflects my exam and findings. I agree with her impression and plan. Given deep ulcer, I would repeat EGD to confirm healing. Henry Perez M.D.
[2018-02-15 10:59] VITALS: BP 133/74; PULSE 50; TEMP 36.9; O2SAT 98
--- NOTE | 2018-02-15 11:43 | Surgery Progress Note ---
Surgery Progress Note Date of Service Feb 15, 2018. Subjective + feeling well, + bowel movement, + diet (tolerated clear liquid diet), No complaints, No nausea, No vomiting Objective Vital Signs: Date Time Temp Pulse Resp B/P (MAP) Pulse Ox O2 Delivery O2 Flow Rate FiO2 02/15/18 10:59 36.9 50 20 133/74 (93) 98 Room Air 02/15/18 09:05 61 97 02/15/18 08:00 Room Air 02/15/18 07:43 36.6 59 20 127/83 (98) 96 Room Air 02/15/18 03:05 36.7 55 20 134/81 (98) 98 CPAP 02/14/18 23:59 Room Air 02/14/18 23:16 36.7 47 19 137/80 (99) 96 Room Air 02/14/18 22:26 57 98 02/14/18 20:00 Room Air 02/14/18 19:50 36.9 49 16 150/89 (109) 96 Room Air 02/14/18 15:28 36.7 56 23 144/86 99 02/14/18 13:55 36.8 72 13 127/72 98 02/14/18 13:20 36.8 64 20 137/80 98 02/14/18 13:06 59 17 126/88 97 02/14/18 12:00 36.8 52 15 126/88 (101) 99 Room Air Abdomen: normal bowel sounds, non tender, non distended, soft Laboratory Results: Results Past 24 Hours Test 02/15/18 05:36 Range/Units White Blood Count 8.86 4.8-10.8 K/uL Red Blood Count 3.16 4.7-6.1 M/uL Hemoglobin 9.1 14.0-18.0 g/dL Hematocrit 27.7 42-52 % Mean Corpuscular Volume 87.7 80-100 fL Mean Corpuscular Hemoglobin 28.8 25-34 pg Mean Corpuscular Hemoglobin Concent 32.9 32-36 g/dl Platelet Count 250 130-400 K/uL Mean Platelet Volume 10.4 7.4-10.4 fL Neutrophils (%) (Auto) 55.5 % Lymphocytes (%) (Auto) 31.2 % Monocytes (%) (Auto) 8.9 % Eosinophils (%) (Auto) 4.1 % Basophils (%) (Auto) 0.3 % Neutrophils # (Auto) 4.92 1.4-6.5 K/uL Lymphocytes # (Auto) 2.76 1.2-3.4 K/uL Monocytes # (Auto) 0.79 0.11-0.59 K/uL Eosinophils # (Auto) 0.36 0-0.5 K/uL Basophils # (Auto) 0.03 0-0.2 K/uL RDW Standard Deviation 45.2 36.4-46.3 fL RDW Coefficient of Variation 14.2 11.5-14.5 % Immature Granulocyte % (Auto) 0.0 % Immature Granulocyte # (Auto) 0.00 0.00-0.02 K/uL Sodium Level 141 136-145 mmol/L Potassium Level 3.6 3.5-5.1 mmol/L Chloride Level 109 98-107 mmol/L Carbon Dioxide Level 24 21-32 mmol/L Anion Gap 8.0 3-11 mmol/L Blood Urea Nitrogen 9 7-18 mg/dl Creatinine 0.84 0.60-1.40 mg/dl Est Creatinine Clear Calc Drug Dose 112.4 ml/min Estimated GFR () 110.3 Estimated GFR (Non- 95.2 BUN/Creatinine Ratio 10.2 10-20 Random Glucose 80 70-99 mg/dl Calcium Level 8.1 8.5-10.1 mg/dl Magnesium Level 2.0 1.8-2.4 mg/dl Assessment & Plan S/p EGD with endoscopic therapy for anastomotic ulcer with bleeding Free air on CT scan CT with oral contrast subsequently showed no leak No peritonitis Tolerated clear liquids, for regular diet today Continue anitulcer regimen
--- NOTE | 2018-02-15 14:21 | Discharge Instructions ---
Discharge Instructions Date of Service Feb 15, 2018. Admission Reason for Admission: Gi Bleed Discharge Discharge Diagnosis / Problem: ANEMIA /GI BLEED Discharge Goals Goal(s): Decrease discomfort, Improve function, Increase independence, Improve disease control, Therapeutic intervention Activity Recommendations Activity Limitations: resume your previous activity . Instructions / Follow-Up Instructions / Follow-Up HOSPITAL FOLLOW UP :02/19/2018 11:[address] Gianna Olmos MD General Internal Medicine [facility] GI FOLLOW UP : IN 1 MONTH FOR REPEAT EGD , GI OFFICE WILL CALL WITH APPOINTMENT DO NOT TAKE ALEVE , ASPIRIN, MOTRIN, ALEVE , NAPROXEN , IBUPROFEN Current Hospital Diet Patient's current hospital diet: AHA Diet (Heart Healthy) Discharge Diet Recommended Diet: AHA Diet (Heart Healthy) Procedures Procedures Performed: Esophagogastroduodenoscopy, Bipolar Cautery, Biopsy, Dr Hammonds Pending Studies Studies pending at discharge: no Laboratory Results Hemoglobin A1c Test 02/13/18 04:17 Range/Units Estimated Average Glucose 103 mg/dl Hemoglobin A1c 5.2 4.5-5.6 % Medical Emergencies . Who to Call and When: Medical Emergencies: If at any time you feel your situation is an emergency, please call 911 immediately. . Non-Emergent Contact Non-Emergency issues call your: Primary Care Provider . . "Provider Documentation" section prepared by Debi Brian. .
[2018-02-15] MEDS ORDERED: CPR500 PO (15:00)
[2018-02-15] MEDS ORDERED: METR-163 PO (15:00)
[2018-02-15] MEDS ORDERED: CRFUDL PO (15:04)
[2018-02-15] MEDS ORDERED: PANT1TAB3 PO (15:05)
--- NOTE | 2018-02-15 15:05 | Discharge Summary ---
Discharge Summary Date of Service Feb 15, 2018. Discharge Summary Admission Date: Feb 12, 2018 at 01:43 Discharge Date: Feb 15, 2018 Discharge Disposition: Home Principal Diagnosis: ANEMIA /GI BLEED Procedures: EGD: impression: - Normal esophagus. - Non-bleeding gastric ulcer with a visible vessel. Injected. Treated with bipolar cautery. - Gastric bypass with a normal-sized pouch and intact staple line. Gastrojejunal anastomosis characterized by ulceration. Gastric remnant biopsied. - Normal examined jejunum. Consultations: [facility] SURGERY Medication Reconciliation New Medications: Ciprofloxacin (Ciprofloxacin HCl) 500 Mg Tab 1 TAB PO BID for 5 Days, #10 TABS Metronidazole (Flagyl) 500 Mg Tab 500 MG PO TID for 5 Days, #15 TAB Pantoprazole (Protonix) 40 Mg Tab 40 MG PO BID for 30 Days, #60 TAB 2 Refills Sucralfate (Sucralfate) 1 Gm/10 Ml Susp 1 GM PO QID for 30 Days, #1 BTL 6 Refills Continued Medications: Atorvastatin (Lipitor) 20 Mg Tab 20 MG PO DAILY, #30 TAB Calcium Carbonate-Vitamin D (Calcium 600 + D) 1 Tab Tab 1 TAB PO DAILY Cyanocobalamin (Cyanocobalamin) 1,000 Mcg/Ml Inj 1 ML INJ q 3 months Pediatric Multiple Vitamin W/ ([place] Gummies Compl) 1 Chw Chw 2 TABS PO DAILY Tramadol (Ultram) 50 Mg Tab 50 MG PO Q8H PRN for Pain, TAB Discontinued Medications: Aspirin (Aspirin Ec) 81 Mg Tab 81 MG PO DAILY Admission Information HPI (per Admitting provider): DATE OF ADMISSION: 02/11/2018 CHIEF COMPLAINT: GI bleed. HISTORY OF PRESENT ILLNESS: This is a 62-year-old male with past medical history significant for obesity, hyperlipidemia, diabetes, hypertension, sleep apnea, but not taking any of his diabetes, or blood pressure medications since he had gastric bypass surgery in 05/2017, and lost about 70 pounds, history of gastric ulcer long time back, who presents today with episode of bright red blood per rectum, which lasted for up to 15 minutes, which brought him to the ER. Currently, resting comfortably. Currently, no more episodes since then. Denies any abdominal pain, no nausea, no vomiting. Hemodynamically stable. No chest pain, no shortness of breath, no cough, no fever, no chills, no headaches, no blurred vision, no dizziness, no earache, no runny nose, no sore throat. No skin rash, no edema in the legs, resting comfortably and hemodynamically stable. ALLERGIES: CHOCOLATE and JANUVIA. PAST MEDICAL HISTORY: As mentioned above. PAST SURGICAL HISTORY: Gastric bypass surgery, colonoscopy, EGDs, laparoscopic procedure of the liver, tonsillectomy, adenoidectomy, knee surgery, and vasectomy. MEDICATIONS: Currently, the patient is on tramadol 50 mg p.o. q. 6 hours p.r.n. pain, multivitamins, cyanocobalamin injections 2 to 3 months, calcium plus vitamin D 1 tablet p.o. daily, Lipitor 20 mg p.o. daily. FAMILY HISTORY: Significant for father had brain cancer and hypertension. Mother had thyroid disorder, diabetes, and eye problems. SOCIAL HISTORY: Quit smoking in 2007, prior to this smoked one pack a day Physical Exam (per Admitting): for 6 years. No alcohol use, no drug use. REVIEW OF SYMPTOMS: As per HPI. Rest of review of systems negative. PHYSICAL EXAMINATION: GENERAL: The patient is obese, not in distress. VITAL SIGNS: Temperature 36.9, pulse 58, respiratory rate 17, blood pressure 100/63, oxygen 99% room air. HEENT: No pallor, no icterus. Pupils equal, round, and reactive to light. NECK: No JVD. No neck masses. No carotid bruit. CARDIOVASCULAR: S1, S2 heard, regular rate and rhythm, no murmur, no gallop. RESPIRATORY SYSTEM: Clear to auscultation bilaterally. No wheezing, no crackles. ABDOMEN: Soft, bowel sounds present. Nontender. No distention. CENTRAL NERVOUS SYSTEM: Cranial nerves II-XII grossly intact. Nonfocal. EXTREMITIES: No edema, no erythema. Hospital Course No further episode of GI bleed/melanotic stool No nausea vomiting no abdominal pain Diet advanced tolerating well H&H remained stable Plan to discharge home today Exam: General- very pale appearing, no sign of distress Eyes-sclera nonicteric, pupils bilateral equal reactive to light extraocular muscles intact ENT-moist oral mucosa Neck-supple, no thyromegaly, trachea midline Lungs-clear to auscultate, no wheeze or rales Heart-regular S1 and S2, no murmur gallop, no lower extremity edema, no carotid bruit, no JVD Abdomen-soft, -no tenderness palpated (had moderate tenderness on left lower quadrant yesterday after the EGD), bowel sounds diminished Extremities-no rash or deformity, Neuro- no focal neurological deficit Psych-alert awake oriented 3, normal mood and affect Lymph nodes-no lymphadenopathy Date Time Temp Pulse Resp B/P (MAP) Pulse Ox O2 Delivery O2 Flow Rate FiO2 02/15/18 16:11 36.9 50 20 98 Room Air 02/15/18 10:59 36.9 50 20 133/74 (93) 98 Room Air 02/15/18 09:05 61 97 GI BLEED /MELANOTIC STOOL : Patient had EGD by Dr. Hammonds, yesterday 02/12/2018 -Showed a nonbleeding gastric ulcer with visible vessel. Was injected with epinephrine for hemostasis, treated with bipolar cautery -Gastric bypass with a normal sized pouch and intact staple line. Gastrojejunal anastomosis characterized by ulceration. Gastric remnant biopsied. -Normal examined jejunum No further episodes of GI bleed, H&H stable after 2 units of PRBC transfusion Updated by GI Stable to be discharged home today GI team will schedule in 3-4 weeks for recheck/repeat EGD PNEUMOPERITONEUM/PERFORATED VISCUS Resolved with conservative management CT abdomen pelvis with contrast-which is done after the EGD procedure: 1. Free intraperitoneal air. In the absence of recent surgery this may indicate a bowel perforation. 2. No evidence of bowel obstruction. 3. No evidence of acute diverticulitis. No evidence of acute appendicitis. 4. Right-sided nephrolithiasis 5. Bilateral renal cysts. Indeterminate lower pole left renal lesions A dedicated renal CT or MRI is recommended in follow-up. Repeat CT abdomen pelvis with p.o. contrast shows no extravasation of fluids in the peritoneal cavity Appreciate input from surgery and GI No surgical procedure needed Abdomen is benign, nontender, normal white count Tolerated clear diet well Advanced to AHA diet, patient tolerated well Having normal brown bowel movement IV Zosyn discontinued Will be discharged home with p.o. Cipro and Flagyl for 5 more days INCIDENTAL FINDING OF LEFT RENAL LESIONS CT abdomen pelvis findings as above: 1 cm exophytic hyperdense nodule/15 mm hypodense lesion on left lower pole of kidney Appreciate input from urology Possible complex cyst Recommends outpatient dedicated renal MRI in 6 months Outpatient follow-up with Dr. Matias at [facility] physician group urology RIGHT-SIDED KIDNEY STONE Incidental finding in CT abdomen pelvis Patient denies of any hematuria/flank pain Urology appreciate Patient follow-up with urology to assess renal stone in clinic ACUTE BLOOD LOSS ANEMIA SECONDARY TO GI BLEED Corrected Hemoglobin dropped from 11.2-8.7-- > 8.1 Status post total 2 units of PRBC transfusion No further episode of melanotic stool H&H stable HYPERLIPIDEMIA : Statin resumed MORBID OBESITY /STATUS POST GASTRIC BYPASS SURGERY Status [place] gastric [place] [facility] [place] Lost approximately 70 pounds since follows with GI and 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 [facility] Patient will continue to follow-up with surgery/and 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 [place] HISTORY OF DIABETES, Antidiabetic meds discontinued significant weight loss due to gastric bypass surgery Fasting blood sugar:103 hemoglobin A1c 5.2 Does not need any antidiabetic medication HYPOTENSION Resolved/due to acute blood loss anemia/dehydration BP remained stable-posttransfusion and IV fluids CODE STATUS: Full code DVT PROPHYLAXIS Low risk SCD and teds Pharmacological anticoagulation avoided in the setting of active GI bleed Patient is encouraged to ambulate when clinically stable DISPOSITION Stable to be discharged home today Medicine follow-up with Dr. Gianna Olmos at [facility] Patient will need close follow-up with GI team as outpatient Total time spent on discharge = 40 minutes This includes examination of the patient, discharge planning, medication reconciliation, and communication with other providers. Discharge Instructions Discharge Instructions Date of Service Feb 15, 2018. Admission Reason for Admission: Gi Bleed Discharge Discharge Diagnosis / Problem: ANEMIA /GI BLEED Discharge Goals Goal(s): Decrease discomfort, Improve function, Increase independence, Improve disease control, Therapeutic intervention Activity Recommendations Activity Limitations: resume your previous activity . Instructions / Follow-Up Instructions / Follow-Up HOSPITAL FOLLOW UP :02/19/2018 11:[address] Gianna Olmos MD General Internal Medicine [facility] GI FOLLOW UP : IN 1 MONTH FOR REPEAT EGD , GI OFFICE WILL CALL WITH APPOINTMENT DO NOT TAKE ALEVE , ASPIRIN, MOTRIN, ALEVE , NAPROXEN , IBUPROFEN Current Hospital Diet Patient's current hospital diet: AHA Diet (Heart Healthy) Discharge Diet Recommended Diet: AHA Diet (Heart Healthy) Procedures Procedures Performed: Esophagogastroduodenoscopy, Bipolar Cautery, Biopsy, Dr Hammonds Pending Studies Studies pending at discharge: no Laboratory Results Hemoglobin A1c Test 02/13/18 04:17 Range/Units Estimated Average Glucose 103 mg/dl Hemoglobin A1c 5.2 4.5-5.6 % Medical Emergencies . Who to Call and When: Medical Emergencies: If at any time you feel your situation is an emergency, please call 911 immediately. . Non-Emergent Contact Non-Emergency issues call your: Primary Care Provider . . "Provider Documentation" section prepared by Debi Brian. .
[2018-02-15 16:11] VITALS: BP 133/74; PULSE 50; TEMP 36.9; O2SAT 98
== END 2018-02-15 17:50 | disposition home or self-care (01) | DRG 378 ==
LOC: C.EDB 22:57 → C.MSICU 02-12 01:43 → ENRESERV 02-12 02:05 → C.2T 02-14 15:41
PROVIDERS: ADMIT Hospitalist; ATTEND Hospitalist
PROC: 3E0G8GC Introduction of Other Therapeutic Substance into Upper GI, Via Natural or Artificial Opening Endoscopic (ICD-10-PCS; principal; 2018-02-12 11:42)
PROC: 0DB68ZX Excision of Stomach, Via Natural or Artificial Opening Endoscopic, Diagnostic (ICD-10-PCS; principal; 2018-02-12 11:42)
DX: K28.4 Chronic or unspecified gastrojejunal ulcer with hemorrhage (principal); D62 Acute posthemorrhagic anemia; K62.5 Hemorrhage of anus and rectum; Z98.84 Bariatric surgery status; T39.015A Adverse effect of aspirin, initial encounter; Z87.891 Personal history of nicotine dependence; I95.9 Hypotension, unspecified; E78.5 Hyperlipidemia, unspecified; E11.9 Type 2 diabetes mellitus without complications; I10 Essential (primary) hypertension; Z88.8 Allergy status to other drugs, medicaments and biological substances; E66.01 Morbid (severe) obesity due to excess calories; N20.0 Calculus of kidney; N28.9 Disorder of kidney and ureter, unspecified; Y92.019 Unspecified place in single-family (private) house as the place of occurrence of the external cause; Z68.36 Body mass index [BMI] 36.0-36.9, adult